=== PATIENT | male | born 1955 | race Caucasian/White ===

== ENCOUNTER 2016-10-12 10:22 | Emergency (ER) | payer MEDICARE, MEDICAID ==
[~2016-10-12] VITALS: Ht 177.8 cm; Wt 74.8 kg
[~2016-10-12 10:22] MED LIST: Augmentin Xr 101 TER PO; BACTRIM DS 8001 TA1 PO; BP MEDICATION; LOTRISONE30 ML T; NEURONTIN300 MG PO; Zestril,Prinivi40 MG PO
[2016-10-12] MEDS ORDERED: GABAPENTIN400 MG PO (10:41)
[2016-10-12] MEDS ORDERED: ENALAPRIL MALEA20 MG PO (10:42)
[2016-10-12 11:13] LABS: BASO % 0.4 % (0.0-1.0); EOS # 0.1 10*3/uL (0.0-0.4); EOS % 1.7 % (1.0-4.0); HEMATOCRIT 40.1 % (42.0-52.0); HEMOGLOBIN 13.4 g/dl (14.0-18.0); LYMPH # 1.8 10*3/uL (1.3-4.4); LYMPH % 23.1 % (27.0-41.0); MEAN CELL VOLUME 90.7 fl (80.0-94.0); MEAN CORPUSCULAR HGB 30.3 pg (27.0-31.0); MEAN CORPUSCULAR HGB CONC 33.4 g/dl (33.0-37.0); MEAN PLATELET VOLUME 10.1 fl (9.6-12.3); MONO # 0.5 10*3/uL (0.1-1.0); MONO % 5.8 % (3.0-9.0); NEUT # 5.3 10*3/uL (2.3-7.9); NEUT % 68.7 % (47.0-73.0); PLATELET COUNT AUTOMATED 196 10*3/uL (130-400); RED BLOOD COUNT 4.42 10*6/uL (4.50-5.90); WHITE BLOOD COUNT 7.7 10*3/uL (4.8-10.8)
[2016-10-12 11:29] LABS: ALBUMIN 3.5 gm/dl (3.1-4.5); ALKALINE PHOSPHATASE 85 U/L (45-117); BILIRUBIN, TOTAL 0.5 mg/dl (0.2-1.0); BUN 14 mg/dl (7-24); CARBON DIOXIDE 29 mmol/L (21-32); CHLORIDE 107 mmol/L (98-107); EST GLOM FILT AFRICAN AMERICAN > 60 ml/min; GLUCOSE 95 mg/dL (65-99); POTASSIUM 3.7 mmol/L (3.5-5.1); SGOT/AST 12 IU/L (3-35); SGPT/ALT 12 U/L (12-78); SODIUM 144 mmol/L (136-145); TOTAL PROTEIN 6.8 gm/dL (6.4-8.2)
[2016-10-12 12:29] LABS: BILIRUBIN NEGATIVE (NEGATIVE); BLOOD 2+ (NEGATIVE); CLARITY CLEAR (CLEAR); COLOR YELLOW (YELLOW); GLUCOSE NEGATIVE (NEGATIVE); KETONE 1+ (NEGATIVE); LEUKO ESTERASE TRACE (NEGATIVE); NITRITE NEGATIVE (NEGATIVE); PROTEIN NEGATIVE (NEGATIVE); SPECIFIC GRAVITY <= 1.005 (1.005-1.030)
[2016-10-12 12:36] LABS: EPITHELIAL CELLS 0-2
[2016-10-12 12:37] LABS: BACTERIA TRACE; URINE REFLEX COMMENT YES (NO)
== END 2016-10-12 13:49 | disposition home or self-care (01) ==
LOC: ED 10:22
PROVIDERS: Emergency Medicine
DX: R31.9 Hematuria, unspecified (principal); R10.30 Lower abdominal pain, unspecified; F12.10 Cannabis abuse, uncomplicated; Z79.899 Other long term (current) drug therapy; Z87.891 Personal history of nicotine dependence

== ENCOUNTER → 2017-08-29 | Outpatient (CLI) | payer MEDICARE ==
[~2017-08-29] MED LIST changes: +ENALAPRIL MALEA20 MG PO; +GABAPENTIN400 MG PO
[2017-08-29 08:57] LABS: HEMOGLOBIN 14.5 g/dl (14.0-18.0); MEAN CELL VOLUME 92.8 fl (80.0-94.0); MEAN CORPUSCULAR HGB 29.9 pg (27.0-31.0); MEAN CORPUSCULAR HGB CONC 32.2 g/dl (33.0-37.0); MEAN PLATELET VOLUME 10.8 fl (9.6-12.3); RED BLOOD COUNT 4.85 10*6/uL (4.50-5.90); RED CELL DISTRI WIDTH 13.3 % (0-14.5); WHITE BLOOD COUNT 6.3 10*3/uL (4.8-10.8)
[2017-08-29 09:33] LABS: ALBUMIN 3.7 gm/dl (3.1-4.5); ALKALINE PHOSPHATASE 91 U/L (45-117); BUN 16 mg/dl (7-24); CHLORIDE 106 mmol/L (98-107); CHOLESTEROL 212 mg/dL (<200); CREATININE 0.81 mg/dL (0.70-1.30); HDL CHOLESTEROL 50 mg/dl (40-60); LDL CHOLESTEROL 146 mg/dL (9-159); SGOT/AST 14 IU/L (3-35); SGPT/ALT 15 U/L (12-78); SODIUM 141 mmol/L (136-145); TOTAL PROTEIN 7.3 gm/dL (6.4-8.2); TRIGLYCERIDES 80 mg/dl (<150); VLDL CHOLESTEROL 16 mg/dL (6-40)
== END | disposition home or self-care (01) ==
LOC: LAB 08:38
PROVIDERS: Family Medicine
DX: Z12.5 Encounter for screening for malignant neoplasm of prostate (principal); E78.00 Pure hypercholesterolemia, unspecified; E55.9 Vitamin D deficiency, unspecified; I10 Essential (primary) hypertension; G62.9 Polyneuropathy, unspecified

== ENCOUNTER 2018-02-12 14:13 | Inpatient (IN) | payer MEDICARE ==
[2018-02-12] VITALS: BP 143/46
[~2018-02-12] VITALS: Ht 177.8 cm; Wt 74.8 kg
--- NOTE | ~2018-02-12 | WRIGHTHP ---
[place], [place] PATIENT HISTORY AND PHYSICAL EXAM NAME: GITA KINGSLEY [facility] #: [id number] UNIT #: [id number] ROOM: 404 DOCTOR: GALILEA GLOVER MD BIRTHDATE: [birth year] DOS: HISTORY OF PRESENT ILLNESS: The patient is a 62-year-old gentleman with a past medical history of: 1. Benign essential hypertension. 2. Fracture of T7, T8 and spinal cord injury at that level causing paraplegia in 2006. 3. Chronic pain syndrome. 4. History of pressure ulcers and osteomyelitis in the past. The patient presented to the Emergency Department with nausea and perirectal drainage, which was being treated by Dr. Goyo Taylor his doctor and his primary care physician, but the treatment failed. The patient was seen for this problem in the Emergency Department and recommended for admission and surgical consult. The patient has been seen by Dr. Hall, the surgeon. The patient is not complaining of any significant pain or drainage, any more. No chest pain, no shortness breath. No other GI or urinary symptoms. REVIEW OF SYSTEMS: RESPIRATORY: No increasing shortness of breath or wheezing. GASTROINTESTINAL: No nausea, vomiting, diarrhea, constipation, recent constipation is already resolved. CARDIOVASCULAR: No chest pains or palpitations. FAMILY HISTORY: Noncontributory. HOME MEDICATIONS: Gabapentin and Enalapril Maleate. ALLERGIES: KNOWN ALLERGIES TO VANCOMYCIN, GABAPENTIN, SULFA, LISINOPRIL. PHYSICAL EXAMINATION: GENERAL: Alert, oriented x 3, in no visible distress. HEENT AND NECK: Extraocular movements are intact. Sclerae are anicteric. Oral mucosa is moist and clean. No obvious facial weakness. Neck is supple without any lymphadenopathy. No thyromegaly. No JVD. No carotid arterial bruits. LUNGS: Clear to auscultation. No wheezing. No rhonchi. CARDIOVASCULAR SYSTEM: Heart rate is regular in rate and rhythm. S1 and S2 normally audible. No significant murmur or any other abnormal cardiac sounds. ABDOMEN: Soft, nontender. No obvious organomegaly. Bowel sounds are present. No obvious herniation. EXTREMITIES: Paraplegia and atrophy of the muscles of the lower extremity. CENTRAL NERVOUS SYSTEM: Alert and oriented x 3. Cranial nerves II-XII are intact. Speech is normal. The patient is able to move all extremities. Normal muscle strength. Deep tendon reflexes are equal on both sides. Plantars were downgoing. LABORATORY DATA: CT of the pelvis shows proctitis with circumferential thickening of the anal canal and there is a soft tissue tract, which extends from the anal orifice towards coccyx, which appears to be chronic. Normal serum electrolytes. Hemoglobin 13.4. [place], [place] PATIENT HISTORY AND PHYSICAL EXAM NAME: GITA KINGSLEY UNIT #: [id number] ROOM: 404 DOCTOR: GALILEA GLOVER MD BIRTHDATE: [birth year] IMPRESSION: The patient perirectal abscess and drainage recently failed treatment with antibiotic as an outpatient. The patient has been admitted and being treated with IV Flagyl and I will get an Infectious Disease consult. Dr. Hall feels that this abscess is chronic and has not suggested any more surgery. Advance disability and paraplegia I am taking bedsore precautions every 2 hour turning and air mattress will be used. Benign essential hypertension, treated monitored and controlled. The patient takes lisinopril. The patient with significant nausea, apparently related to infection, although he has no leukocytosis. The patient was started on ondansetron intravenously. GALILEA GLOVER MD CM:HISPHYS:PATIENT HISTORY AND PHYSICAL EXAMINATION [id number] GALILEA GLOVER MD 02/25/18 1330 interface
--- NOTE | ~2018-02-12 | DS ---
[place], [place] DISCHARGE SUMMARY [id number] UN[facility] #: [id number] ROOM: 404 DOCTOR: GALILEA GLOVER MD BIRTHDATE: [birth year] DOS: 02/14/2018 DISCHARGE DIAGNOSES: 1. Perianal abscess, stopped draining. The patient was seen by Infectious Disease specialist and surgeon, Dr. Hall. No leukocytosis. 2. Benign essential hypertension. 3. Fractures of T7, T8 and spinal cord injury with paraplegia since 2006. 4. Chronic pain syndrome. 5. History of pressure ulcers and osteomyelitis in the past. HOSPITAL COURSE: The patient was admitted through the Emergency Department. He presented with nausea and perirectal drainage and abscess, sent over by Dr. Goyo Taylor for failed outpatient antibiotic treatment. The patient was admitted and first treated with Flagyl and later on IV Zosyn. Case was discussed with Infectious Disease specialist today and the ID java consultant will order discharge antibiotics today. The patient is to be seen by Dr. Goyo Taylor within a week. No significant leukocytosis. The patient is doing well. No signs of sepsis. Blood cultures and urine cultures were negative. LABORATORY DATA: Hemoglobin of 13, normal platelets. CT of the pelvis showed an old perianal tract. DISCHARGE MANAGEMENT: Antibiotics as decided by ID, lisinopril 40 mg a day, gabapentin 400 mg 3 times a day, Tylenol p.r.n. GALILEA GLOVER MD CM:BEN [id number] GALILEA GLOVER MD 02/14/18 1047 interface
[2018-02-12 14:14] VITALS: BP 156/84
[2018-02-12 15:26] LABS: BASO % 0.5 % (0.0-1.0); EOS # 0.2 10*3/uL (0.0-0.4); EOS % 2.8 % (1.0-4.0); HEMOGLOBIN 13.4 g/dl (14.0-18.0); LYMPH # 1.8 10*3/uL (1.3-4.4); LYMPH % 32.2 % (27.0-41.0); MEAN CELL VOLUME 89.5 fl (80.0-94.0); MEAN CORPUSCULAR HGB CONC 33.5 g/dl (33.0-37.0); MONO # 0.5 10*3/uL (0.1-1.0); MONO % 8.2 % (3.0-9.0); NEUT # 3.2 10*3/uL (2.3-7.9); NEUT % 56.1 % (47.0-73.0); PLATELET COUNT AUTOMATED 216 10*3/uL (130-400); RED BLOOD COUNT 4.47 10*6/uL (4.50-5.90); WHITE BLOOD COUNT 5.6 10*3/uL (4.8-10.8)
[2018-02-12 15:40] LABS: ALBUMIN 3.3 gm/dl (3.1-4.5); ALKALINE PHOSPHATASE 86 U/L (45-117); BUN 11 mg/dl (7-24); CHLORIDE 109 mmol/L (98-107); CREATININE 0.78 mg/dL (0.70-1.30); POTASSIUM 3.5 mmol/L (3.5-5.1); SGOT/AST 17 IU/L (3-35); SGPT/ALT 24 U/L (12-78); SODIUM 145 mmol/L (136-145); TOTAL PROTEIN 7.1 gm/dL (6.4-8.2)
[2018-02-12 16:00] VITALS: BP 143/46
[2018-02-12 19:37] LABS: BILIRUBIN NEGATIVE (NEGATIVE); BLOOD 2+ (NEGATIVE); CLARITY CLEAR (CLEAR); COLOR YELLOW (YELLOW); GLUCOSE NEGATIVE (NEGATIVE); KETONE NEGATIVE (NEGATIVE); LEUKO ESTERASE NEGATIVE (NEGATIVE); NITRITE NEGATIVE (NEGATIVE); PH 7.5 (5.0-9.0); UROBILINOGEN 0.2 E.U./dl (0.2-1.0)
[2018-02-12 19:58] LABS: RBC 16-20 rbc/hpf (0-2)
[2018-02-12 19:59] LABS: BACTERIA TRACE
[2018-02-12 20:00] VITALS: BP 143/46
[2018-02-12 20:02] VITALS: BP 153/87
[2018-02-13] VITALS: BP 149/81
[2018-02-13 08:00] VITALS: BP 160/90
[2018-02-13 12:00] VITALS: BP 149/85
[2018-02-13 16:00] VITALS: BP 145/81
[2018-02-13 20:00] VITALS: BP 108/67; BP 157/81
[2018-02-14] VITALS: BP 141/83; BP 143/46
[2018-02-14 06:19] LABS: BASO % 0.6 % (0.0-1.0); EOS # 0.2 10*3/uL (0.0-0.4); EOS % 4.9 % (1.0-4.0); LYMPH # 1.6 10*3/uL (1.3-4.4); MEAN CORPUSCULAR HGB 29.7 pg (27.0-31.0); MEAN CORPUSCULAR HGB CONC 33.3 g/dl (33.0-37.0); MEAN PLATELET VOLUME 10.3 fl (9.6-12.3); MONO # 0.4 10*3/uL (0.1-1.0); MONO % 8.3 % (3.0-9.0); NEUT # 2.4 10*3/uL (2.3-7.9); PLATELET COUNT AUTOMATED 191 10*3/uL (130-400); RED BLOOD COUNT 4.38 10*6/uL (4.50-5.90); RED CELL DISTRI WIDTH 13.8 % (0-14.5); WHITE BLOOD COUNT 4.7 10*3/uL (4.8-10.8)
[2018-02-14 08:00] VITALS: BP 143/78; BP 160/90
[2018-02-14 12:00] VITALS: BP 147/84
== END 2018-02-14 13:59 | disposition home or self-care (01) | DRG 394 ==
LOC: ED 14:13 → EDHOLD 18:16 → 4E 18:16
PROVIDERS: Internal Medicine; Nurse Practitioner
DX: K61.2 Anorectal abscess (principal); G82.20 Paraplegia, unspecified; L02.91 Cutaneous abscess, unspecified; G89.4 Chronic pain syndrome; I10 Essential (primary) hypertension; R00.1 Bradycardia, unspecified; R31.9 Hematuria, unspecified; Z88.8 Allergy status to other drugs, medicaments and biological substances; Z88.1 Allergy status to other antibiotic agents; Z88.2 Allergy status to sulfonamides; Z87.891 Personal history of nicotine dependence; Z81.8 Family history of other mental and behavioral disorders; Z82.49 Family history of ischemic heart disease and other diseases of the circulatory system; Z87.440 Personal history of urinary (tract) infections; Z79.899 Other long term (current) drug therapy

== ENCOUNTER 2019-04-29 11:05 | Inpatient (IN) | payer OTHER, MEDICAID ==
[~2019-04-29] VITALS: Ht 177.8 cm; Wt 63.7 kg
[2019-04-29] VITALS (7 sets, daily range): BP systolic 123–186; BP diastolic 69–102
[2019-04-29 12:06] LABS: BASO % 0.3 % (0.0-1.0); EOS # 0.1 10*3/uL (0.0-0.4); EOS % 0.8 % (1.0-4.0); HEMATOCRIT 43.9 % (42.0-52.0); HEMOGLOBIN 14.6 g/dl (14.0-18.0); LYMPH # 1.3 10*3/uL (1.3-4.4); LYMPH % 11.1 % (27.0-41.0); MEAN CORPUSCULAR HGB 30.9 pg (27.0-31.0); MEAN CORPUSCULAR HGB CONC 33.3 g/dl (33.0-37.0); MEAN PLATELET VOLUME 10.8 fl (9.6-12.3); MONO # 0.7 10*3/uL (0.1-1.0); MONO % 6.5 % (3.0-9.0); NEUT # 9.2 10*3/uL (2.3-7.9); NEUT % 80.9 % (47.0-73.0); PLATELET COUNT AUTOMATED 202 10*3/uL (130-400); RED BLOOD COUNT 4.72 10*6/uL (4.50-5.90); RED CELL DISTRI WIDTH 13.3 % (0-14.5); WHITE BLOOD COUNT 11.4 10*3/uL (4.8-10.8)
[2019-04-29 12:17] LABS: ACT PARTIAL THROMBO TIME 28.2 SECONDS (20.0-32.1)
[2019-04-29 12:21] LABS: BUN 16 mg/dl (7-24); CHLORIDE 110 mmol/L (98-107); CREATININE 0.75 mg/dL (0.70-1.30); POTASSIUM 3.7 mmol/L (3.5-5.1); SODIUM 140 mmol/L (136-145)
[2019-04-29 12:31] LABS: TROPONIN I < 0.015 ng/ml (<0.045)
[2019-04-29 12:54] LABS: BILIRUBIN NEGATIVE (NEGATIVE); BLOOD 2+ (NEGATIVE); CLARITY CLEAR (CLEAR); COLOR YELLOW (YELLOW); GLUCOSE NEGATIVE (NEGATIVE); KETONE NEGATIVE (NEGATIVE); LEUKO ESTERASE NEGATIVE (NEGATIVE); NITRITE NEGATIVE (NEGATIVE); PH 6.5 (5.0-9.0); SPECIFIC GRAVITY 1.015 (1.005-1.030); UROBILINOGEN 0.2 E.U./dl (0.2-1.0)
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
[2019-04-29 13:10] LABS: RBC 16-20 rbc/hpf (0-2)
--- NOTE | 2019-04-29 13:40 | NUR ---
UNABLE TO REACH 4E NRS LEFT MESSAGE TO BE CALLED
--- NOTE | 2019-04-29 14:20 | NUR ---
A 64, admitted to , under the services of ASHLEE Snow MD with a diagnosis of Intermittent chest pain. Chief complaint is high blood pressure. Patient arrived via stretcher from ER. Monitor applied. Initial assessment completed. Vital signs taken and recorded. ASHLEE SNOW MD notified of admission to the unit. Orders received. See assessment for past medical history, medications and allergies. Patient and/or family oriented to unit. [address] visitation policy reviewed. Clothing/patient valuable form completed. BOOGIE DUMONT
--- NOTE | 2019-04-29 14:50 | NUR ---
Notified of patients arrival to unit and of updated home med list. Patients current status and medications were reviewed. See new orders.
--- NOTE | 2019-04-29 15:53 | NUR ---
Message left with Mona at [facility] regarding consult for chest pain and uncontrolled hypertension.
--- NOTE | 2019-04-29 17:30 | NUR ---
Notified Dr. Velazquez that patient had c/o nausea and an episode of vomitting. See new orders.
--- NOTE | 2019-04-29 18:04 | NUR ---
Discharge instructions reviewed with patient/family. Patient receptive and verbalizes understanding. Follow-up care arranged. Written instructions given to patient/family. Patient was educated on new prescriptions and follow up visits. She was also educated on weight restrictions and pain medications. BOOGIE DUMONT
--- NOTE | 2019-04-29 20:36 | NUR ---
PATIENT ADMINISTERED TYLENOL FOR COMPLAINTS OF HEADACHE PER DR ORDERS. RN WILL MONITOR
--- NOTE | 2019-04-29 21:45 | NUR ---
PATIENT STATES RELIEF FROM PAIN WITH EARLIER MEDICATION
--- NOTE | 2019-04-29 23:45 | NUR ---
STRAIGHT CATHS PROVIDED FOR PATIENT AT THIS TIME
[2019-04-30] VITALS: BP 122/67
[2019-04-30 05:52] LABS: CHOLESTEROL 200 mg/dL (<200); HDL CHOLESTEROL 51 mg/dl (40-60); LDL CHOLESTEROL 134 mg/dL (9-159); TRIGLYCERIDES 77 mg/dl (<150); VLDL CHOLESTEROL 15 mg/dL (6-40)
--- NOTE | 2019-04-30 09:00 | NUR ---
Late entry [place] Operator in to see patient. He is currently having an echo done at bedside. Will follow up at a later time.
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
[2019-04-30 12:00] VITALS: BP 153/80
--- NOTE | 2019-04-30 13:04 | NUR ---
Medicated with zofran iv per prn order for complaints of nausea.
[2019-04-30 16:00] VITALS: BP 142/72
[2019-04-30 20:36] VITALS: BP 119/71
[2019-05-01] VITALS: BP 126/68
--- NOTE | 2019-05-01 03:06 | NUR ---
TYLENOL GIVEN PER PRN ORDER FOR C/O RIGHT SHOULDER PAIN. SEE EMAR. REINFORCED USE OF CALL LIGHT
[2019-05-01 08:00] VITALS: BP 134/83
[2019-05-01] MEDS ORDERED: DOXYCYCLINE100 M3 PO (08:21)
[2019-05-01] MEDS ORDERED: AMLODIPINE BESYL5 MG PO (08:21)
[2019-05-01] MEDS ORDERED: ATORVASTATIN CA20 M1 PO (08:21)
[2019-05-01] MEDS ORDERED: HYDR25T PO (08:22)
--- NOTE | 2019-05-01 09:34 | NUR ---
PT REFUSED DC WOUND PHOTOS
--- NOTE | 2019-05-01 11:18 | NUR ---
Discharge instructions reviewed with patient/family. Patient receptive and verbalizes understanding. Follow-up care arranged. Written instructions given to patient/family. POLI CRUZ
== END 2019-05-01 11:18 | disposition home or self-care (01) | DRG 206 ==
LOC: ED 11:05 → 4E 12:39 → EDHOLD 12:39 → 4E 13:09
PROVIDERS: Emergency Medicine; Internal Medicine; ADMIT Internal Medicine
DX: M94.0 Chondrocostal junction syndrome [Tietze] (principal); L03.116 Cellulitis of left lower limb; I16.9 Hypertensive crisis, unspecified; G82.20 Paraplegia, unspecified; R07.2 Precordial pain; I10 Essential (primary) hypertension; R33.9 Retention of urine, unspecified; T24.102A Burn of first degree of unspecified site of left lower limb, except ankle and foot, initial encounter; E78.2 Mixed hyperlipidemia; E87.8 Other disorders of electrolyte and fluid balance, not elsewhere classified; R00.1 Bradycardia, unspecified; I16.0 Hypertensive urgency; I08.1 Rheumatic disorders of both mitral and tricuspid valves; R10.9 Unspecified abdominal pain; F12.90 Cannabis use, unspecified, uncomplicated; X16.XXXA Contact with hot heating appliances, radiators and pipes, initial encounter; Y93.89 Activity, other specified; Y92.098 Other place in other non-institutional residence as the place of occurrence of the external cause; Y99.8 Other external cause status; Z88.8 Allergy status to other drugs, medicaments and biological substances; Z88.2 Allergy status to sulfonamides; Z88.1 Allergy status to other antibiotic agents; Z87.440 Personal history of urinary (tract) infections; Z87.891 Personal history of nicotine dependence; Z82.49 Family history of ischemic heart disease and other diseases of the circulatory system; Z81.8 Family history of other mental and behavioral disorders; Z91.81 History of falling

== ENCOUNTER → 2019-07-10 | Outpatient (CLI) | payer OTHER, MEDICAID ==
[~2019-07-10] MED LIST changes: +AMLODIPINE BESYL5 MG PO; +ATORVASTATIN CA20 M1 PO; +DOXYCYCLINE100 M3 PO; +HYDR25T PO
[2019-07-10 12:36] LABS: HEMATOCRIT 39.2 % (42.0-52.0); HEMOGLOBIN 12.8 g/dl (14.0-18.0); MEAN CELL VOLUME 92.9 fl (80.0-94.0); MEAN CORPUSCULAR HGB 30.3 pg (27.0-31.0); MEAN CORPUSCULAR HGB CONC 32.7 g/dl (33.0-37.0); MEAN PLATELET VOLUME 10.4 fl (9.6-12.3); RED BLOOD COUNT 4.22 10*6/uL (4.50-5.90); RED CELL DISTRI WIDTH 13.6 % (0-14.5)
[2019-07-10 13:04] LABS: ALBUMIN 3.2 gm/dl (3.1-4.5); BUN 15 mg/dl (7-24); CHLORIDE 109 mmol/L (98-107); CREATININE 0.88 mg/dL (0.70-1.30); POTASSIUM 3.6 mmol/L (3.5-5.1); SGOT/AST 13 IU/L (3-35); SGPT/ALT 19 U/L (12-78); SODIUM 143 mmol/L (136-145)
[2019-07-10 13:15] LABS: ALKALINE PHOSPHATASE 88 U/L (45-117); TOTAL PROTEIN 6.9 gm/dL (6.4-8.2)
== END | disposition home or self-care (01) ==
LOC: LAB 11:10
PROVIDERS: Family Medicine
DX: T24.009A Burn of unspecified degree of unspecified site of unspecified lower limb, except ankle and foot, initial encounter (principal); I10 Essential (primary) hypertension; E78.00 Pure hypercholesterolemia, unspecified; X08.8XXA Exposure to other specified smoke, fire and flames, initial encounter; Y93.89 Activity, other specified; Y92.89 Other specified places as the place of occurrence of the external cause; Y99.8 Other external cause status

== ENCOUNTER → 2022-02-03 | Outpatient (CLI) | payer MEDICARE | END | disposition home or self-care (01) | LOC: WOUNDCARE 07:58 | PROVIDERS: ATTEND Nurse Practitioner Family | DX: L89.213 Pressure ulcer of right hip, stage 3 (principal); L89.153 Pressure ulcer of sacral region, stage 3; I95.89 Other hypotension; M86.8X7 Other osteomyelitis, ankle and foot; G82.20 Paraplegia, unspecified; G62.9 Polyneuropathy, unspecified; I10 Essential (primary) hypertension; Z99.3 Dependence on wheelchair; Z87.891 Personal history of nicotine dependence ==

== ENCOUNTER 2022-02-13 14:58 | Emergency (ER) | payer MEDICARE ==
[~2022-02-13] VITALS: Ht 177.8 cm; Wt 63.5 kg
[2022-02-13 17:08] LABS: BASO % 0.2 % (0.0-1.0); EOS % 0.4 % (1.0-4.0); HEMATOCRIT 26.3 % (42.0-52.0); LYMPH # 0.6 10*3/uL (1.3-4.4); LYMPH % 6.7 % (27.0-41.0); MEAN CELL VOLUME 79.9 fl (80.0-94.0); MEAN CORPUSCULAR HGB 24.9 pg (27.0-31.0); MEAN CORPUSCULAR HGB CONC 31.2 g/dl (33.0-37.0); MEAN PLATELET VOLUME 9.2 fl (9.6-12.3); MONO # 0.6 10*3/uL (0.1-1.0); MONO % 6.5 % (3.0-9.0); NEUT # 7.7 10*3/uL (2.3-7.9); NEUT % 85.8 % (47.0-73.0); PLATELET COUNT AUTOMATED 480 10*3/uL (130-400); RED BLOOD COUNT 3.29 10*6/uL (4.50-5.90); RED CELL DISTRI WIDTH 17.2 % (0-14.5)
[2022-02-13 17:34] LABS: ALKALINE PHOSPHATASE 83 U/L (45-117); BUN 15 mg/dl (7-24); CHLORIDE 103 mmol/L (98-107); CREATININE 0.86 mg/dL (0.70-1.30); POTASSIUM 4.2 mmol/L (3.5-5.1); SGOT/AST 38 IU/L (3-35); SGPT/ALT 43 U/L (12-78); SODIUM 138 mmol/L (136-145); TOTAL PROTEIN 6.3 gm/dL (6.4-8.2)
[2022-02-13] MEDS ORDERED: NEURONTIN300 MG PO (17:41)
[2022-02-13] MEDS ORDERED: VITAMIN C500 M8 PO (17:42)
[2022-02-13] MEDS ORDERED: VITAMIN B-12100 MCG PO (17:43)
[2022-02-13] MEDS ORDERED: MAG-OXIDE200 MG PO (17:44)
[2022-02-13] MEDS ORDERED: MINOCYCLINE HC100 MG PO (17:45)
[2022-02-13] MEDS ORDERED: MULTIGEN PLUS1 EACH PO (17:46)
[2022-02-13] MEDS ORDERED: TYLENOL325 M1 PO (17:47)
[2022-02-13] MEDS ORDERED: NATURE'S BLEND F1 MG PO (17:47)
== END 2022-02-13 19:07 | disposition home or self-care (01) ==
LOC: ED 14:58
PROVIDERS: Family Medicine
DX: L98.498 Non-pressure chronic ulcer of skin of other sites with other specified severity (principal); Z87.891 Personal history of nicotine dependence; Z79.899 Other long term (current) drug therapy; Z88.1 Allergy status to other antibiotic agents

== ENCOUNTER 2022-02-14 14:42 | Emergency (ER) | payer MEDICARE ==
[~2022-02-14] VITALS: Ht 177.8 cm; Wt 63.5 kg
== END 2022-02-14 15:07 | disposition left against medical advice (07) ==
LOC: ED 14:42
DX: L98.498 Non-pressure chronic ulcer of skin of other sites with other specified severity (principal); Z53.21 Procedure and treatment not carried out due to patient leaving prior to being seen by health care provider

== ENCOUNTER → 2022-02-14 | Outpatient (CLI) | payer MEDICARE ==
[~2022-02-14] MED LIST changes: +MAG-OXIDE200 MG PO; +MINOCYCLINE HC100 MG PO; +MULTIGEN PLUS1 EACH PO; +NATURE'S BLEND F1 MG PO; +TYLENOL325 M1 PO; +VITAMIN B-12100 MCG PO; +VITAMIN C500 M8 PO
== END | disposition home or self-care (01) ==
LOC: WOUNDCARE 08:38
PROVIDERS: ATTEND Nurse Practitioner Family
DX: L89.153 Pressure ulcer of sacral region, stage 3 (principal); L89.213 Pressure ulcer of right hip, stage 3; L89.313 Pressure ulcer of right buttock, stage 3; I95.89 Other hypotension; M86.8X7 Other osteomyelitis, ankle and foot; G82.20 Paraplegia, unspecified; I10 Essential (primary) hypertension; Z99.3 Dependence on wheelchair; Z87.891 Personal history of nicotine dependence

== ENCOUNTER → 2022-03-14 | Outpatient (CLI) | payer MEDICARE | END | disposition home or self-care (01) | LOC: WOUNDCARE 03:15 | PROVIDERS: ATTEND Nurse Practitioner Family | DX: L89.153 Pressure ulcer of sacral region, stage 3 (principal); L89.313 Pressure ulcer of right buttock, stage 3; L89.213 Pressure ulcer of right hip, stage 3; M86.8X7 Other osteomyelitis, ankle and foot; G82.20 Paraplegia, unspecified; I10 Essential (primary) hypertension; Z99.3 Dependence on wheelchair; Z87.891 Personal history of nicotine dependence; Z71.89 Other specified counseling ==

== ENCOUNTER → 2022-03-21 | Outpatient (CLI) | payer MEDICARE | END | disposition home or self-care (01) | LOC: WOUNDCARE 03:05 | PROVIDERS: ATTEND Nurse Practitioner Family | DX: L89.153 Pressure ulcer of sacral region, stage 3 (principal); L89.213 Pressure ulcer of right hip, stage 3; M86.60 Other chronic osteomyelitis, unspecified site; G82.20 Paraplegia, unspecified; G62.9 Polyneuropathy, unspecified; I10 Essential (primary) hypertension; Z99.3 Dependence on wheelchair; Z71.89 Other specified counseling; Z87.891 Personal history of nicotine dependence ==

== ENCOUNTER → 2022-03-22 | Outpatient (CLI) | payer MEDICARE | END | disposition home or self-care (01) | LOC: WOUNDCARE 09:11 | PROVIDERS: ATTEND Nurse Practitioner Family | DX: M86.68 Other chronic osteomyelitis, other site (principal); L89.213 Pressure ulcer of right hip, stage 3; L89.153 Pressure ulcer of sacral region, stage 3; G82.20 Paraplegia, unspecified; G62.9 Polyneuropathy, unspecified; I10 Essential (primary) hypertension; Z99.3 Dependence on wheelchair; Z71.89 Other specified counseling; Z87.891 Personal history of nicotine dependence ==

== ENCOUNTER → 2022-03-23 | Outpatient (CLI) | payer MEDICARE | END | disposition home or self-care (01) | LOC: WOUNDCARE 04:44 | PROVIDERS: ATTEND Nurse Practitioner Family | DX: M86.68 Other chronic osteomyelitis, other site (principal); L89.213 Pressure ulcer of right hip, stage 3; L89.153 Pressure ulcer of sacral region, stage 3; G82.20 Paraplegia, unspecified; G62.9 Polyneuropathy, unspecified; I10 Essential (primary) hypertension; Z99.3 Dependence on wheelchair; Z71.89 Other specified counseling; Z87.891 Personal history of nicotine dependence ==

== ENCOUNTER → 2022-03-24 | Outpatient (CLI) | payer MEDICARE | END | disposition home or self-care (01) | LOC: WOUNDCARE 01:00 | PROVIDERS: ATTEND Internal Medicine | DX: M86.68 Other chronic osteomyelitis, other site (principal); L89.213 Pressure ulcer of right hip, stage 3; L89.153 Pressure ulcer of sacral region, stage 3; G62.9 Polyneuropathy, unspecified; G82.20 Paraplegia, unspecified; I10 Essential (primary) hypertension; Z99.3 Dependence on wheelchair; Z87.891 Personal history of nicotine dependence; Z71.89 Other specified counseling ==

== ENCOUNTER → 2022-03-28 | Outpatient (CLI) | payer MEDICARE | END | disposition home or self-care (01) | LOC: WOUNDCARE 02:59 | PROVIDERS: ATTEND Nurse Practitioner Family | DX: M86.68 Other chronic osteomyelitis, other site (principal); L89.153 Pressure ulcer of sacral region, stage 3; L89.213 Pressure ulcer of right hip, stage 3; G82.20 Paraplegia, unspecified; I10 Essential (primary) hypertension; Z71.89 Other specified counseling; Z99.3 Dependence on wheelchair; Z87.891 Personal history of nicotine dependence ==

== ENCOUNTER → 2022-03-29 | Outpatient (CLI) | payer MEDICARE | END | disposition home or self-care (01) | LOC: WOUNDCARE 03:20 | PROVIDERS: ATTEND Nurse Practitioner Family | DX: M86.68 Other chronic osteomyelitis, other site (principal); L89.213 Pressure ulcer of right hip, stage 3; L89.153 Pressure ulcer of sacral region, stage 3; G82.20 Paraplegia, unspecified; G62.9 Polyneuropathy, unspecified; I10 Essential (primary) hypertension; Z99.3 Dependence on wheelchair; Z71.89 Other specified counseling; Z87.891 Personal history of nicotine dependence ==

== ENCOUNTER → 2022-03-30 | Outpatient (CLI) | payer MEDICARE | END | disposition home or self-care (01) | LOC: WOUNDCARE 01:25 | PROVIDERS: ATTEND Nurse Practitioner Family | DX: M86.68 Other chronic osteomyelitis, other site (principal); L89.153 Pressure ulcer of sacral region, stage 3; L89.213 Pressure ulcer of right hip, stage 3; G82.20 Paraplegia, unspecified; G62.9 Polyneuropathy, unspecified; I10 Essential (primary) hypertension; Z99.3 Dependence on wheelchair; Z71.89 Other specified counseling; Z87.891 Personal history of nicotine dependence ==

== ENCOUNTER → 2022-04-04 | Outpatient (CLI) | payer MEDICARE | END | disposition home or self-care (01) | LOC: WOUNDCARE 04:21 | PROVIDERS: ATTEND Student in an Organized Health Care Education/Training Program | DX: M86.68 Other chronic osteomyelitis, other site (principal); L89.213 Pressure ulcer of right hip, stage 3; L89.153 Pressure ulcer of sacral region, stage 3; G82.20 Paraplegia, unspecified; G62.9 Polyneuropathy, unspecified; I10 Essential (primary) hypertension; Z99.3 Dependence on wheelchair; Z71.89 Other specified counseling; Z87.891 Personal history of nicotine dependence ==

== ENCOUNTER → 2022-04-11 | Outpatient (CLI) | payer MEDICARE | END | disposition home or self-care (01) | LOC: WOUNDCARE 01:46 | PROVIDERS: ATTEND Nurse Practitioner Family | DX: M86.68 Other chronic osteomyelitis, other site (principal); L89.153 Pressure ulcer of sacral region, stage 3; L89.213 Pressure ulcer of right hip, stage 3; T24.302A Burn of third degree of unspecified site of left lower limb, except ankle and foot, initial encounter; T31.0 Burns involving less than 10% of body surface; L97.822 Non-pressure chronic ulcer of other part of left lower leg with fat layer exposed; M86.60 Other chronic osteomyelitis, unspecified site; G62.9 Polyneuropathy, unspecified; G82.20 Paraplegia, unspecified; I10 Essential (primary) hypertension; Z71.89 Other specified counseling; Z87.891 Personal history of nicotine dependence; Z99.3 Dependence on wheelchair; X08.8XXA Exposure to other specified smoke, fire and flames, initial encounter; Y93.89 Activity, other specified; Y92.89 Other specified places as the place of occurrence of the external cause; Y99.8 Other external cause status ==

== ENCOUNTER → 2022-04-12 | Outpatient (CLI) | payer MEDICARE | END | disposition home or self-care (01) | LOC: WOUNDCARE 04:42 | PROVIDERS: ATTEND Nurse Practitioner Family | DX: M86.68 Other chronic osteomyelitis, other site (principal); L89.213 Pressure ulcer of right hip, stage 3; L89.153 Pressure ulcer of sacral region, stage 3; L97.822 Non-pressure chronic ulcer of other part of left lower leg with fat layer exposed; G62.9 Polyneuropathy, unspecified; I10 Essential (primary) hypertension; G82.20 Paraplegia, unspecified; Z71.89 Other specified counseling; Z99.3 Dependence on wheelchair; Z87.891 Personal history of nicotine dependence ==

== ENCOUNTER → 2022-04-14 | Outpatient (CLI) | payer MEDICARE | LOC: WOUNDCARE 02:25 | PROVIDERS: ATTEND Nurse Practitioner Family | DX: M86.68 Other chronic osteomyelitis, other site (principal); L89.213 Pressure ulcer of right hip, stage 3; L89.153 Pressure ulcer of sacral region, stage 3; L97.822 Non-pressure chronic ulcer of other part of left lower leg with fat layer exposed; G82.20 Paraplegia, unspecified; G62.9 Polyneuropathy, unspecified; I10 Essential (primary) hypertension; Z99.3 Dependence on wheelchair; Z71.89 Other specified counseling; Z87.891 Personal history of nicotine dependence ==

== ENCOUNTER → 2022-04-17 | Outpatient (CLI) | payer MEDICARE | END | disposition home or self-care (01) | LOC: WOUNDCARE 00:54 | PROVIDERS: ATTEND Internal Medicine | DX: M86.68 Other chronic osteomyelitis, other site (principal); L89.213 Pressure ulcer of right hip, stage 3; L89.153 Pressure ulcer of sacral region, stage 3; L97.822 Non-pressure chronic ulcer of other part of left lower leg with fat layer exposed; G82.20 Paraplegia, unspecified; G62.9 Polyneuropathy, unspecified; I10 Essential (primary) hypertension; Z99.3 Dependence on wheelchair; Z71.89 Other specified counseling; Z87.891 Personal history of nicotine dependence ==

== ENCOUNTER → 2022-04-18 | Outpatient (CLI) | payer MEDICARE | END | disposition home or self-care (01) | LOC: WOUNDCARE 03:08 | PROVIDERS: ATTEND Nurse Practitioner Family | DX: M86.68 Other chronic osteomyelitis, other site (principal); L89.153 Pressure ulcer of sacral region, stage 3; L89.213 Pressure ulcer of right hip, stage 3; L97.822 Non-pressure chronic ulcer of other part of left lower leg with fat layer exposed; T24.302D Burn of third degree of unspecified site of left lower limb, except ankle and foot, subsequent encounter; T31.0 Burns involving less than 10% of body surface; G82.20 Paraplegia, unspecified; G62.9 Polyneuropathy, unspecified; I10 Essential (primary) hypertension; Z99.3 Dependence on wheelchair; Z71.89 Other specified counseling; Z87.891 Personal history of nicotine dependence; X08.8XXD Exposure to other specified smoke, fire and flames, subsequent encounter ==

== ENCOUNTER → 2022-04-19 | Outpatient (CLI) | payer MEDICARE | END | disposition home or self-care (01) | LOC: WOUNDCARE 03:04 | PROVIDERS: ATTEND Nurse Practitioner Family | DX: M86.68 Other chronic osteomyelitis, other site (principal); L89.213 Pressure ulcer of right hip, stage 3; L89.153 Pressure ulcer of sacral region, stage 3; L97.822 Non-pressure chronic ulcer of other part of left lower leg with fat layer exposed; G82.20 Paraplegia, unspecified; G62.9 Polyneuropathy, unspecified; I10 Essential (primary) hypertension; Z99.3 Dependence on wheelchair; Z71.89 Other specified counseling; Z87.891 Personal history of nicotine dependence ==

== ENCOUNTER → 2022-04-20 | Outpatient (CLI) | payer MEDICARE | END | disposition home or self-care (01) | LOC: WOUNDCARE 01:15 | PROVIDERS: ATTEND Nurse Practitioner Family | DX: M86.68 Other chronic osteomyelitis, other site (principal); L89.213 Pressure ulcer of right hip, stage 3; L89.153 Pressure ulcer of sacral region, stage 3; L97.822 Non-pressure chronic ulcer of other part of left lower leg with fat layer exposed; G62.9 Polyneuropathy, unspecified; G82.20 Paraplegia, unspecified; I10 Essential (primary) hypertension; Z99.3 Dependence on wheelchair; Z71.89 Other specified counseling; Z87.891 Personal history of nicotine dependence ==

== ENCOUNTER → 2022-04-24 | Outpatient (CLI) | payer MEDICARE | END | disposition home or self-care (01) | LOC: WOUNDCARE 01:38 | PROVIDERS: ATTEND Student in an Organized Health Care Education/Training Program | DX: M86.68 Other chronic osteomyelitis, other site (principal); L89.213 Pressure ulcer of right hip, stage 3; L89.153 Pressure ulcer of sacral region, stage 3; L97.822 Non-pressure chronic ulcer of other part of left lower leg with fat layer exposed; G82.20 Paraplegia, unspecified; G62.9 Polyneuropathy, unspecified; I10 Essential (primary) hypertension; Z99.3 Dependence on wheelchair; Z71.89 Other specified counseling; Z87.891 Personal history of nicotine dependence ==

== ENCOUNTER → 2022-04-26 | Outpatient (CLI) | payer MEDICARE | END | disposition home or self-care (01) | LOC: WOUNDCARE 01:06 | PROVIDERS: ATTEND Nurse Practitioner Family | DX: M86.68 Other chronic osteomyelitis, other site (principal); L89.213 Pressure ulcer of right hip, stage 3; L89.153 Pressure ulcer of sacral region, stage 3; L97.822 Non-pressure chronic ulcer of other part of left lower leg with fat layer exposed; G82.20 Paraplegia, unspecified; G62.9 Polyneuropathy, unspecified; I10 Essential (primary) hypertension; Z99.3 Dependence on wheelchair; Z71.89 Other specified counseling; Z87.891 Personal history of nicotine dependence ==

== ENCOUNTER → 2022-04-27 | Outpatient (CLI) | payer MEDICARE | END | disposition home or self-care (01) | LOC: WOUNDCARE 02:41 | PROVIDERS: ATTEND Internal Medicine | DX: M86.68 Other chronic osteomyelitis, other site (principal); L89.213 Pressure ulcer of right hip, stage 3; L89.153 Pressure ulcer of sacral region, stage 3; L97.822 Non-pressure chronic ulcer of other part of left lower leg with fat layer exposed; G82.20 Paraplegia, unspecified; G62.9 Polyneuropathy, unspecified; I10 Essential (primary) hypertension; Z99.3 Dependence on wheelchair; Z71.89 Other specified counseling; Z87.891 Personal history of nicotine dependence ==

== ENCOUNTER → 2022-04-28 | Outpatient (CLI) | payer MEDICARE | END | disposition home or self-care (01) | LOC: WOUNDCARE 02:44 | PROVIDERS: ATTEND Nurse Practitioner Family | DX: M86.68 Other chronic osteomyelitis, other site (principal); L89.213 Pressure ulcer of right hip, stage 3; L89.513 Pressure ulcer of right ankle, stage 3; L97.822 Non-pressure chronic ulcer of other part of left lower leg with fat layer exposed; G82.20 Paraplegia, unspecified; G62.9 Polyneuropathy, unspecified; I10 Essential (primary) hypertension; Z99.3 Dependence on wheelchair; Z71.89 Other specified counseling; Z87.891 Personal history of nicotine dependence ==

== ENCOUNTER → 2022-05-01 | Outpatient (CLI) | payer MEDICARE | END | disposition home or self-care (01) | LOC: WOUNDCARE 01:31 | PROVIDERS: ATTEND Student in an Organized Health Care Education/Training Program | DX: M86.68 Other chronic osteomyelitis, other site (principal); L89.213 Pressure ulcer of right hip, stage 3; L89.153 Pressure ulcer of sacral region, stage 3; L97.822 Non-pressure chronic ulcer of other part of left lower leg with fat layer exposed; G82.20 Paraplegia, unspecified; G62.9 Polyneuropathy, unspecified; I10 Essential (primary) hypertension; Z99.3 Dependence on wheelchair; Z71.89 Other specified counseling; Z87.891 Personal history of nicotine dependence ==

== ENCOUNTER → 2022-05-02 | Outpatient (CLI) | payer MEDICARE | END | disposition home or self-care (01) | LOC: WOUNDCARE 01:00 | PROVIDERS: ATTEND Internal Medicine | DX: M86.68 Other chronic osteomyelitis, other site (principal); L89.213 Pressure ulcer of right hip, stage 3; L89.153 Pressure ulcer of sacral region, stage 3; L97.822 Non-pressure chronic ulcer of other part of left lower leg with fat layer exposed; G82.20 Paraplegia, unspecified; G62.9 Polyneuropathy, unspecified; I10 Essential (primary) hypertension; Z99.3 Dependence on wheelchair; Z71.89 Other specified counseling; Z87.891 Personal history of nicotine dependence ==

== ENCOUNTER → 2022-05-05 | Outpatient (CLI) | payer MEDICARE | END | disposition home or self-care (01) | LOC: WOUNDCARE 01:19 | PROVIDERS: ATTEND Nurse Practitioner Family | DX: M86.68 Other chronic osteomyelitis, other site (principal); L89.213 Pressure ulcer of right hip, stage 3; L89.153 Pressure ulcer of sacral region, stage 3; L97.822 Non-pressure chronic ulcer of other part of left lower leg with fat layer exposed; G82.20 Paraplegia, unspecified; G62.9 Polyneuropathy, unspecified; I10 Essential (primary) hypertension; Z99.3 Dependence on wheelchair; Z71.89 Other specified counseling; Z87.891 Personal history of nicotine dependence ==

== ENCOUNTER → 2022-05-10 | Outpatient (CLI) | payer MEDICARE | END | disposition home or self-care (01) | LOC: WOUNDCARE 02:45 | PROVIDERS: ATTEND Nurse Practitioner Family | DX: M86.68 Other chronic osteomyelitis, other site (principal); L97.822 Non-pressure chronic ulcer of other part of left lower leg with fat layer exposed; L89.213 Pressure ulcer of right hip, stage 3; L89.153 Pressure ulcer of sacral region, stage 3; G82.20 Paraplegia, unspecified; G62.9 Polyneuropathy, unspecified; I10 Essential (primary) hypertension; Z99.3 Dependence on wheelchair; Z71.89 Other specified counseling; Z87.891 Personal history of nicotine dependence ==

== ENCOUNTER → 2022-05-11 | Outpatient (CLI) | payer MEDICARE | LOC: WOUNDCARE 01:58 | PROVIDERS: ATTEND Nurse Practitioner Family | DX: Z53.21 Procedure and treatment not carried out due to patient leaving prior to being seen by health care provider (principal) ==

== ENCOUNTER → 2022-05-15 | Outpatient (CLI) | payer MEDICARE | END | disposition home or self-care (01) | LOC: WOUNDCARE 00:25 | PROVIDERS: ATTEND Internal Medicine | DX: M86.68 Other chronic osteomyelitis, other site (principal); L89.213 Pressure ulcer of right hip, stage 3; L89.153 Pressure ulcer of sacral region, stage 3; L97.822 Non-pressure chronic ulcer of other part of left lower leg with fat layer exposed; G82.20 Paraplegia, unspecified; G62.9 Polyneuropathy, unspecified; I10 Essential (primary) hypertension; Z99.3 Dependence on wheelchair; Z71.89 Other specified counseling; Z87.891 Personal history of nicotine dependence ==

== ENCOUNTER → 2022-05-16 | Outpatient (CLI) | payer MEDICARE | END | disposition home or self-care (01) | LOC: WOUNDCARE 02:37 | PROVIDERS: ATTEND Internal Medicine | DX: L89.153 Pressure ulcer of sacral region, stage 3 (principal); L89.213 Pressure ulcer of right hip, stage 3; L97.822 Non-pressure chronic ulcer of other part of left lower leg with fat layer exposed; M86.60 Other chronic osteomyelitis, unspecified site; G82.20 Paraplegia, unspecified; G62.9 Polyneuropathy, unspecified; I10 Essential (primary) hypertension; Z99.3 Dependence on wheelchair; Z71.89 Other specified counseling; Z87.891 Personal history of nicotine dependence ==

== ENCOUNTER → 2022-05-17 | Outpatient (CLI) | payer MEDICARE | END | disposition home or self-care (01) | LOC: WOUNDCARE 03:24 | PROVIDERS: ATTEND Nurse Practitioner Family | DX: M86.68 Other chronic osteomyelitis, other site (principal); L89.213 Pressure ulcer of right hip, stage 3; L89.153 Pressure ulcer of sacral region, stage 3; L97.822 Non-pressure chronic ulcer of other part of left lower leg with fat layer exposed; G82.20 Paraplegia, unspecified; G62.9 Polyneuropathy, unspecified; I10 Essential (primary) hypertension; Z99.3 Dependence on wheelchair; Z71.89 Other specified counseling; Z87.891 Personal history of nicotine dependence ==

== ENCOUNTER → 2022-05-18 | Outpatient (CLI) | payer MEDICARE | END | disposition home or self-care (01) | LOC: WOUNDCARE 01:09 | PROVIDERS: ATTEND Internal Medicine | DX: M86.68 Other chronic osteomyelitis, other site (principal); L89.213 Pressure ulcer of right hip, stage 3; L89.153 Pressure ulcer of sacral region, stage 3; L97.822 Non-pressure chronic ulcer of other part of left lower leg with fat layer exposed; G82.20 Paraplegia, unspecified; G62.9 Polyneuropathy, unspecified; I10 Essential (primary) hypertension; Z99.3 Dependence on wheelchair; Z71.89 Other specified counseling; Z87.891 Personal history of nicotine dependence ==

== ENCOUNTER → 2022-05-19 | Outpatient (CLI) | payer MEDICARE | END | disposition home or self-care (01) | LOC: WOUNDCARE 00:27 | PROVIDERS: ATTEND Nurse Practitioner Family | DX: M86.68 Other chronic osteomyelitis, other site (principal); L89.213 Pressure ulcer of right hip, stage 3; L89.153 Pressure ulcer of sacral region, stage 3; L97.822 Non-pressure chronic ulcer of other part of left lower leg with fat layer exposed; G82.20 Paraplegia, unspecified; G62.9 Polyneuropathy, unspecified; I10 Essential (primary) hypertension; Z99.3 Dependence on wheelchair; Z71.89 Other specified counseling; Z87.891 Personal history of nicotine dependence ==

== ENCOUNTER → 2022-05-24 | Outpatient (CLI) | payer MEDICARE | END | disposition home or self-care (01) | LOC: WOUNDCARE 01:34 | PROVIDERS: ATTEND Nurse Practitioner Family | DX: M86.68 Other chronic osteomyelitis, other site (principal); L89.213 Pressure ulcer of right hip, stage 3; L89.153 Pressure ulcer of sacral region, stage 3; L97.822 Non-pressure chronic ulcer of other part of left lower leg with fat layer exposed; G82.20 Paraplegia, unspecified; G62.9 Polyneuropathy, unspecified; I10 Essential (primary) hypertension; Z99.3 Dependence on wheelchair; Z71.89 Other specified counseling; Z87.891 Personal history of nicotine dependence ==

== ENCOUNTER → 2022-05-25 | Outpatient (CLI) | payer MEDICARE | END | disposition home or self-care (01) | LOC: WOUNDCARE 00:51 | PROVIDERS: ATTEND Nurse Practitioner Family | DX: M86.68 Other chronic osteomyelitis, other site (principal); L89.213 Pressure ulcer of right hip, stage 3; L89.153 Pressure ulcer of sacral region, stage 3; L97.822 Non-pressure chronic ulcer of other part of left lower leg with fat layer exposed; G82.20 Paraplegia, unspecified; G62.9 Polyneuropathy, unspecified; I10 Essential (primary) hypertension; Z71.89 Other specified counseling; Z99.3 Dependence on wheelchair; Z87.891 Personal history of nicotine dependence ==

== ENCOUNTER → 2022-05-26 | Outpatient (CLI) | payer MEDICARE | END | disposition home or self-care (01) | LOC: WOUNDCARE 00:11 | PROVIDERS: ATTEND Internal Medicine | DX: M86.68 Other chronic osteomyelitis, other site (principal); L89.213 Pressure ulcer of right hip, stage 3; L89.153 Pressure ulcer of sacral region, stage 3; L97.822 Non-pressure chronic ulcer of other part of left lower leg with fat layer exposed; G82.20 Paraplegia, unspecified; G62.9 Polyneuropathy, unspecified; I10 Essential (primary) hypertension; Z71.89 Other specified counseling; Z99.3 Dependence on wheelchair; Z87.891 Personal history of nicotine dependence ==

== ENCOUNTER → 2022-05-30 | Outpatient (CLI) | payer MEDICARE | LOC: WOUNDCARE 03:55 | PROVIDERS: ATTEND Student in an Organized Health Care Education/Training Program | DX: M86.68 Other chronic osteomyelitis, other site (principal); L89.213 Pressure ulcer of right hip, stage 3; L89.153 Pressure ulcer of sacral region, stage 3; L97.822 Non-pressure chronic ulcer of other part of left lower leg with fat layer exposed; I10 Essential (primary) hypertension; G62.9 Polyneuropathy, unspecified; G82.20 Paraplegia, unspecified; Z99.3 Dependence on wheelchair; Z71.89 Other specified counseling; Z87.891 Personal history of nicotine dependence ==

== ENCOUNTER → 2022-05-31 | Outpatient (CLI) | payer MEDICARE | END | disposition home or self-care (01) | LOC: WOUNDCARE 03-27 04:03 | PROVIDERS: ATTEND Nurse Practitioner Family | DX: M86.68 Other chronic osteomyelitis, other site (principal); L89.213 Pressure ulcer of right hip, stage 3; L89.153 Pressure ulcer of sacral region, stage 3; L97.822 Non-pressure chronic ulcer of other part of left lower leg with fat layer exposed; I10 Essential (primary) hypertension; G62.9 Polyneuropathy, unspecified; G82.20 Paraplegia, unspecified; Z99.3 Dependence on wheelchair; Z71.89 Other specified counseling; Z87.891 Personal history of nicotine dependence ==

== ENCOUNTER → 2022-06-01 | Outpatient (CLI) | payer MEDICARE | END | disposition home or self-care (01) | LOC: WOUNDCARE 00:34 | PROVIDERS: ATTEND Nurse Practitioner Family | DX: M86.68 Other chronic osteomyelitis, other site (principal); L89.213 Pressure ulcer of right hip, stage 3; L89.153 Pressure ulcer of sacral region, stage 3; L97.822 Non-pressure chronic ulcer of other part of left lower leg with fat layer exposed; G82.20 Paraplegia, unspecified; G62.9 Polyneuropathy, unspecified; I10 Essential (primary) hypertension; Z99.3 Dependence on wheelchair; Z71.89 Other specified counseling; Z87.891 Personal history of nicotine dependence ==

== ENCOUNTER → 2022-06-02 | Outpatient (CLI) | payer MEDICARE | END | disposition home or self-care (01) | LOC: WOUNDCARE 04-06 00:38 | PROVIDERS: ATTEND Nurse Practitioner Family | DX: M86.68 Other chronic osteomyelitis, other site (principal); L97.822 Non-pressure chronic ulcer of other part of left lower leg with fat layer exposed; L89.213 Pressure ulcer of right hip, stage 3; L89.153 Pressure ulcer of sacral region, stage 3; G82.20 Paraplegia, unspecified; G62.9 Polyneuropathy, unspecified; I10 Essential (primary) hypertension; Z99.3 Dependence on wheelchair; Z71.89 Other specified counseling; Z87.891 Personal history of nicotine dependence ==

== ENCOUNTER → 2022-06-06 | Outpatient (CLI) | payer MEDICARE | END | disposition home or self-care (01) | LOC: WOUNDCARE 05:12 | PROVIDERS: ATTEND Student in an Organized Health Care Education/Training Program | DX: M86.68 Other chronic osteomyelitis, other site (principal); L97.822 Non-pressure chronic ulcer of other part of left lower leg with fat layer exposed; L89.213 Pressure ulcer of right hip, stage 3; L89.153 Pressure ulcer of sacral region, stage 3; G82.20 Paraplegia, unspecified; G62.9 Polyneuropathy, unspecified; I10 Essential (primary) hypertension; Z99.3 Dependence on wheelchair; Z71.89 Other specified counseling; Z87.891 Personal history of nicotine dependence ==

== ENCOUNTER → 2022-06-07 | Outpatient (CLI) | payer MEDICARE | END | disposition home or self-care (01) | LOC: WOUNDCARE 04-05 03:52 | PROVIDERS: ATTEND Nurse Practitioner Family | DX: M86.68 Other chronic osteomyelitis, other site (principal); L97.822 Non-pressure chronic ulcer of other part of left lower leg with fat layer exposed; L89.213 Pressure ulcer of right hip, stage 3; L89.153 Pressure ulcer of sacral region, stage 3; G82.20 Paraplegia, unspecified; G62.9 Polyneuropathy, unspecified; I10 Essential (primary) hypertension; Z99.3 Dependence on wheelchair; Z71.89 Other specified counseling; Z87.891 Personal history of nicotine dependence ==

== ENCOUNTER → 2022-06-08 | Outpatient (CLI) | payer MEDICARE | END | disposition home or self-care (01) | LOC: WOUNDCARE 00:50 | PROVIDERS: ATTEND Internal Medicine | DX: M86.68 Other chronic osteomyelitis, other site (principal); L97.822 Non-pressure chronic ulcer of other part of left lower leg with fat layer exposed; L89.214 Pressure ulcer of right hip, stage 4; L89.154 Pressure ulcer of sacral region, stage 4; G82.20 Paraplegia, unspecified; G62.9 Polyneuropathy, unspecified; I10 Essential (primary) hypertension; Z99.3 Dependence on wheelchair; Z71.89 Other specified counseling; Z87.891 Personal history of nicotine dependence ==

== ENCOUNTER → 2022-06-09 | Outpatient (CLI) | payer MEDICARE | END | disposition home or self-care (01) | LOC: WOUNDCARE 01:21 | PROVIDERS: ATTEND Nurse Practitioner Family | DX: M86.68 Other chronic osteomyelitis, other site (principal); L97.822 Non-pressure chronic ulcer of other part of left lower leg with fat layer exposed; L89.214 Pressure ulcer of right hip, stage 4; L89.154 Pressure ulcer of sacral region, stage 4; G82.20 Paraplegia, unspecified; G62.9 Polyneuropathy, unspecified; I10 Essential (primary) hypertension; Z99.3 Dependence on wheelchair; Z71.89 Other specified counseling; Z87.891 Personal history of nicotine dependence ==

== ENCOUNTER → 2022-06-19 | Outpatient (CLI) | payer MEDICARE | END | disposition home or self-care (01) | LOC: WOUNDCARE 01:56 | PROVIDERS: ATTEND Internal Medicine | DX: M86.68 Other chronic osteomyelitis, other site (principal); L97.822 Non-pressure chronic ulcer of other part of left lower leg with fat layer exposed; L89.214 Pressure ulcer of right hip, stage 4; L89.154 Pressure ulcer of sacral region, stage 4; G82.20 Paraplegia, unspecified; G62.9 Polyneuropathy, unspecified; I10 Essential (primary) hypertension; Z99.3 Dependence on wheelchair; Z71.89 Other specified counseling; Z87.891 Personal history of nicotine dependence ==

== ENCOUNTER → 2022-06-20 | Outpatient (CLI) | payer MEDICARE | END | disposition home or self-care (01) | LOC: WOUNDCARE 00:44 | PROVIDERS: ATTEND Internal Medicine | DX: M86.68 Other chronic osteomyelitis, other site (principal); L89.154 Pressure ulcer of sacral region, stage 4; L89.214 Pressure ulcer of right hip, stage 4; L97.822 Non-pressure chronic ulcer of other part of left lower leg with fat layer exposed; G82.20 Paraplegia, unspecified; G62.9 Polyneuropathy, unspecified; I10 Essential (primary) hypertension; Z71.89 Other specified counseling; Z99.3 Dependence on wheelchair; Z87.891 Personal history of nicotine dependence ==

== ENCOUNTER → 2022-06-22 | Outpatient (CLI) | payer MEDICARE | LOC: WOUNDCARE 01:18 | PROVIDERS: ATTEND Internal Medicine | DX: M86.68 Other chronic osteomyelitis, other site (principal); L89.214 Pressure ulcer of right hip, stage 4; L89.154 Pressure ulcer of sacral region, stage 4; L97.822 Non-pressure chronic ulcer of other part of left lower leg with fat layer exposed; G82.20 Paraplegia, unspecified; G62.9 Polyneuropathy, unspecified; I10 Essential (primary) hypertension; Z99.3 Dependence on wheelchair; Z71.89 Other specified counseling; Z87.891 Personal history of nicotine dependence ==

== ENCOUNTER → 2022-06-22 | Outpatient (CLI) | payer MEDICARE | END | disposition home or self-care (01) | LOC: WOUNDCARE 01:20 | PROVIDERS: ATTEND Nurse Practitioner Family | DX: M86.68 Other chronic osteomyelitis, other site (principal); L89.214 Pressure ulcer of right hip, stage 4; L89.154 Pressure ulcer of sacral region, stage 4; L97.822 Non-pressure chronic ulcer of other part of left lower leg with fat layer exposed; G82.20 Paraplegia, unspecified; G62.9 Polyneuropathy, unspecified; I10 Essential (primary) hypertension; Z99.3 Dependence on wheelchair; Z71.89 Other specified counseling; Z87.891 Personal history of nicotine dependence ==

== ENCOUNTER → 2022-06-23 | Outpatient (CLI) | payer MEDICARE | END | disposition home or self-care (01) | LOC: WOUNDCARE 00:31 | PROVIDERS: ATTEND Internal Medicine | DX: M86.68 Other chronic osteomyelitis, other site (principal); L89.214 Pressure ulcer of right hip, stage 4; L89.154 Pressure ulcer of sacral region, stage 4; L97.822 Non-pressure chronic ulcer of other part of left lower leg with fat layer exposed; G82.20 Paraplegia, unspecified; G62.9 Polyneuropathy, unspecified; I10 Essential (primary) hypertension; Z99.3 Dependence on wheelchair; Z71.89 Other specified counseling; Z87.891 Personal history of nicotine dependence ==

== ENCOUNTER → 2022-06-28 | Outpatient (CLI) | payer MEDICARE | END | disposition home or self-care (01) | LOC: WOUNDCARE 00:01 | PROVIDERS: ATTEND Nurse Practitioner Family | DX: M86.68 Other chronic osteomyelitis, other site (principal); L89.214 Pressure ulcer of right hip, stage 4; L89.154 Pressure ulcer of sacral region, stage 4; L97.822 Non-pressure chronic ulcer of other part of left lower leg with fat layer exposed; G82.20 Paraplegia, unspecified; G62.9 Polyneuropathy, unspecified; I10 Essential (primary) hypertension; Z99.3 Dependence on wheelchair; Z71.89 Other specified counseling; Z87.891 Personal history of nicotine dependence ==

== ENCOUNTER → 2022-06-29 | Outpatient (CLI) | payer MEDICARE | END | disposition home or self-care (01) | LOC: WOUNDCARE 02:21 | PROVIDERS: ATTEND Nurse Practitioner Family | DX: M86.68 Other chronic osteomyelitis, other site (principal); L89.214 Pressure ulcer of right hip, stage 4; L89.154 Pressure ulcer of sacral region, stage 4; L97.822 Non-pressure chronic ulcer of other part of left lower leg with fat layer exposed; G82.20 Paraplegia, unspecified; G62.9 Polyneuropathy, unspecified; I10 Essential (primary) hypertension; Z71.89 Other specified counseling; Z99.3 Dependence on wheelchair; Z87.891 Personal history of nicotine dependence ==

== ENCOUNTER → 2022-06-30 | Outpatient (CLI) | payer MEDICARE | END | disposition home or self-care (01) | LOC: WOUNDCARE 01:12 | PROVIDERS: ATTEND Internal Medicine | DX: M86.68 Other chronic osteomyelitis, other site (principal); L89.214 Pressure ulcer of right hip, stage 4; L89.154 Pressure ulcer of sacral region, stage 4; L97.822 Non-pressure chronic ulcer of other part of left lower leg with fat layer exposed; G82.20 Paraplegia, unspecified; G62.9 Polyneuropathy, unspecified; I10 Essential (primary) hypertension; Z99.3 Dependence on wheelchair; Z71.89 Other specified counseling; Z87.891 Personal history of nicotine dependence ==

== ENCOUNTER → 2022-07-04 | Outpatient (CLI) | payer MEDICARE | END | disposition home or self-care (01) | LOC: WOUNDCARE 01:23 | PROVIDERS: ATTEND Internal Medicine | DX: M86.68 Other chronic osteomyelitis, other site (principal); L89.214 Pressure ulcer of right hip, stage 4; L89.154 Pressure ulcer of sacral region, stage 4; L97.822 Non-pressure chronic ulcer of other part of left lower leg with fat layer exposed; G82.20 Paraplegia, unspecified; G62.9 Polyneuropathy, unspecified; I10 Essential (primary) hypertension; Z71.89 Other specified counseling; Z99.3 Dependence on wheelchair; Z87.891 Personal history of nicotine dependence ==

== ENCOUNTER → 2022-07-05 | Outpatient (CLI) | payer MEDICARE | END | disposition home or self-care (01) | LOC: WOUNDCARE 00:42 | PROVIDERS: ATTEND Nurse Practitioner Family | DX: M86.68 Other chronic osteomyelitis, other site (principal); L89.214 Pressure ulcer of right hip, stage 4; L89.154 Pressure ulcer of sacral region, stage 4; L97.822 Non-pressure chronic ulcer of other part of left lower leg with fat layer exposed; G82.20 Paraplegia, unspecified; G62.9 Polyneuropathy, unspecified; I10 Essential (primary) hypertension; Z99.3 Dependence on wheelchair; Z71.89 Other specified counseling; Z87.891 Personal history of nicotine dependence ==

== ENCOUNTER → 2022-07-06 | Outpatient (CLI) | payer MEDICARE | END | disposition home or self-care (01) | LOC: WOUNDCARE 00:43 | PROVIDERS: ATTEND Nurse Practitioner Family | DX: M86.68 Other chronic osteomyelitis, other site (principal); L89.214 Pressure ulcer of right hip, stage 4; L89.154 Pressure ulcer of sacral region, stage 4; L97.822 Non-pressure chronic ulcer of other part of left lower leg with fat layer exposed; G82.20 Paraplegia, unspecified; G62.9 Polyneuropathy, unspecified; I10 Essential (primary) hypertension; Z99.3 Dependence on wheelchair; Z71.89 Other specified counseling; Z87.891 Personal history of nicotine dependence ==

== ENCOUNTER → 2022-07-07 | Outpatient (CLI) | payer MEDICARE | END | disposition home or self-care (01) | LOC: WOUNDCARE 00:51 | PROVIDERS: ATTEND Nurse Practitioner Family | DX: M86.68 Other chronic osteomyelitis, other site (principal); L89.214 Pressure ulcer of right hip, stage 4; L89.154 Pressure ulcer of sacral region, stage 4; L97.822 Non-pressure chronic ulcer of other part of left lower leg with fat layer exposed; G82.20 Paraplegia, unspecified; G62.9 Polyneuropathy, unspecified; I10 Essential (primary) hypertension; Z99.3 Dependence on wheelchair; Z71.89 Other specified counseling; Z87.891 Personal history of nicotine dependence ==

== ENCOUNTER → 2022-07-10 | Outpatient (CLI) | payer MEDICARE | END | disposition home or self-care (01) | LOC: WOUNDCARE 00:04 | PROVIDERS: ATTEND Internal Medicine | DX: M86.68 Other chronic osteomyelitis, other site (principal); L89.214 Pressure ulcer of right hip, stage 4; L89.154 Pressure ulcer of sacral region, stage 4; L97.822 Non-pressure chronic ulcer of other part of left lower leg with fat layer exposed; G82.20 Paraplegia, unspecified; G62.9 Polyneuropathy, unspecified; I10 Essential (primary) hypertension; Z99.3 Dependence on wheelchair; Z71.89 Other specified counseling; Z87.891 Personal history of nicotine dependence ==

== ENCOUNTER → 2022-07-13 | Outpatient (CLI) | payer MEDICARE | END | disposition home or self-care (01) | LOC: WOUNDCARE 00:40 | PROVIDERS: ATTEND Nurse Practitioner Family | DX: M86.68 Other chronic osteomyelitis, other site (principal); L89.214 Pressure ulcer of right hip, stage 4; L89.154 Pressure ulcer of sacral region, stage 4; L97.822 Non-pressure chronic ulcer of other part of left lower leg with fat layer exposed; G82.20 Paraplegia, unspecified; G62.9 Polyneuropathy, unspecified; I10 Essential (primary) hypertension; Z71.89 Other specified counseling; Z99.3 Dependence on wheelchair; Z87.891 Personal history of nicotine dependence ==

== ENCOUNTER → 2022-07-14 | Outpatient (CLI) | payer MEDICARE | END | disposition home or self-care (01) | LOC: WOUNDCARE 01:19 | PROVIDERS: ATTEND Internal Medicine | DX: M86.68 Other chronic osteomyelitis, other site (principal); L89.214 Pressure ulcer of right hip, stage 4; L89.154 Pressure ulcer of sacral region, stage 4; L97.822 Non-pressure chronic ulcer of other part of left lower leg with fat layer exposed; I10 Essential (primary) hypertension; G82.20 Paraplegia, unspecified; G62.9 Polyneuropathy, unspecified; Z71.89 Other specified counseling; Z99.3 Dependence on wheelchair; Z87.891 Personal history of nicotine dependence ==

== ENCOUNTER 2022-07-26 10:59 | Emergency (ER) | payer MEDICARE ==
[~2022-07-26] VITALS: Ht 177.8 cm; Wt 68.0 kg
[2022-07-26 12:12] LABS: BASO % 0.4 % (0.0-1.0); EOS # 0.1 10*3/uL (0.0-0.4); EOS % 1.3 % (1.0-4.0); HEMATOCRIT 31.1 % (42.0-52.0); LYMPH # 1.3 10*3/uL (1.3-4.4); LYMPH % 16.1 % (27.0-41.0); MEAN CELL VOLUME 74.9 fl (80.0-94.0); MEAN CORPUSCULAR HGB 22.7 pg (27.0-31.0); MEAN CORPUSCULAR HGB CONC 30.2 g/dl (33.0-37.0); MEAN PLATELET VOLUME 8.9 fl (9.6-12.3); MONO # 0.6 10*3/uL (0.1-1.0); MONO % 7.1 % (3.0-9.0); NEUT # 6.1 10*3/uL (2.3-7.9); NEUT % 74.7 % (47.0-73.0); PLATELET COUNT AUTOMATED 362 10*3/uL (130-400); RED BLOOD COUNT 4.15 10*6/uL (4.50-5.90); RED CELL DISTRI WIDTH 19.9 % (0-14.5); WHITE BLOOD COUNT 8.2 10*3/uL (4.8-10.8)
[2022-07-26 12:23] LABS: ACT PARTIAL THROMBO TIME 36.2 SECONDS (20.0-32.1); INTERNATIONAL NORM RATIO 1.1 (2.0-3.5)
[2022-07-26 12:27] LABS: BILIRUBIN Negative (Negative); BLOOD 1+ (Negative); CLARITY Clear (Clear); COLOR Yellow (Yellow); GLUCOSE Negative (Negative); KETONE Negative (Negative); LEUKO ESTERASE 1+ (Negative); NITRITE Negative (Negative); PH 5.5 (4.5-8.0); SPECIFIC GRAVITY 1.015 (1.001-1.030); UROBILINOGEN 0.2 E.U./dl (0.0-1.0)
[2022-07-26 12:29] LABS: ALKALINE PHOSPHATASE 88 U/L (46-116); BUN 10 mg/dl (9-23); CHLORIDE 106 mmol/L (98-107); LIPASE 27 U/L (12-53); POTASSIUM 3.9 mmol/L (3.4-5.1); SGPT/ALT 8 U/L (10-49); TOTAL PROTEIN 6.6 gm/dL (6.0-8.0)
[2022-07-26 12:35] LABS: MUCOUS TRACE
[2022-07-26] MEDS ORDERED: ENALAPRIL20 MG PO (16:04)
[2022-07-26] MEDS ORDERED: ASPIRIN81 M1 PO (16:05)
[2022-07-26] MEDS ORDERED: ONDANSETRON4 MG SL (16:30)
== END 2022-07-26 16:42 | disposition home or self-care (01) ==
LOC: ED 10:59
PROVIDERS: Emergency Medicine
DX: E86.0 Dehydration (principal); R11.0 Nausea; R10.9 Unspecified abdominal pain; I10 Essential (primary) hypertension; Z88.2 Allergy status to sulfonamides; Z88.1 Allergy status to other antibiotic agents; Z88.8 Allergy status to other drugs, medicaments and biological substances; Z90.89 Acquired absence of other organs; Z98.890 Other specified postprocedural states; F17.210 Nicotine dependence, cigarettes, uncomplicated

== ENCOUNTER → 2022-07-27 | Outpatient (CLI) | payer MEDICARE ==
[~2022-07-27] MED LIST changes: +ASPIRIN81 M1 PO; +ENALAPRIL20 MG PO; +ONDANSETRON4 MG SL
== END | disposition home or self-care (01) ==
LOC: WOUNDCARE 01:56
PROVIDERS: ATTEND Student in an Organized Health Care Education/Training Program
DX: M86.68 Other chronic osteomyelitis, other site (principal); G82.20 Paraplegia, unspecified; L97.822 Non-pressure chronic ulcer of other part of left lower leg with fat layer exposed; L89.214 Pressure ulcer of right hip, stage 4; L89.154 Pressure ulcer of sacral region, stage 4; Z99.3 Dependence on wheelchair; Z71.89 Other specified counseling

== ENCOUNTER → 2022-07-28 | Outpatient (CLI) | payer MEDICARE | LOC: WOUNDCARE 00:23 | PROVIDERS: ATTEND Student in an Organized Health Care Education/Training Program | DX: M86.68 Other chronic osteomyelitis, other site (principal); L89.214 Pressure ulcer of right hip, stage 4; L89.154 Pressure ulcer of sacral region, stage 4; L97.822 Non-pressure chronic ulcer of other part of left lower leg with fat layer exposed; G82.20 Paraplegia, unspecified; G62.9 Polyneuropathy, unspecified; I10 Essential (primary) hypertension; Z71.89 Other specified counseling; Z99.3 Dependence on wheelchair; Z87.891 Personal history of nicotine dependence ==

== ENCOUNTER → 2022-08-01 | Outpatient (CLI) | payer MEDICARE | END | disposition home or self-care (01) | LOC: WOUNDCARE 01:00 | PROVIDERS: ATTEND Nurse Practitioner Family | DX: M86.68 Other chronic osteomyelitis, other site (principal); L97.822 Non-pressure chronic ulcer of other part of left lower leg with fat layer exposed; L89.214 Pressure ulcer of right hip, stage 4; L89.154 Pressure ulcer of sacral region, stage 4; G82.20 Paraplegia, unspecified; G62.9 Polyneuropathy, unspecified; I10 Essential (primary) hypertension; Z99.3 Dependence on wheelchair; Z71.89 Other specified counseling; Z87.891 Personal history of nicotine dependence ==

== ENCOUNTER → 2022-08-02 | Outpatient (CLI) | payer MEDICARE | END | disposition home or self-care (01) | LOC: WOUNDCARE 01:44 | PROVIDERS: ATTEND Nurse Practitioner Family | DX: M86.68 Other chronic osteomyelitis, other site (principal); L97.822 Non-pressure chronic ulcer of other part of left lower leg with fat layer exposed; L89.214 Pressure ulcer of right hip, stage 4; L89.154 Pressure ulcer of sacral region, stage 4; G82.20 Paraplegia, unspecified; G62.9 Polyneuropathy, unspecified; I10 Essential (primary) hypertension; Z99.3 Dependence on wheelchair; Z87.891 Personal history of nicotine dependence; Z71.89 Other specified counseling ==

== ENCOUNTER → 2022-08-03 | Outpatient (CLI) | payer MEDICARE | END | disposition home or self-care (01) | LOC: WOUNDCARE 01:03 | PROVIDERS: ATTEND Nurse Practitioner Family | DX: M86.68 Other chronic osteomyelitis, other site (principal); L89.214 Pressure ulcer of right hip, stage 4; L89.154 Pressure ulcer of sacral region, stage 4; L97.822 Non-pressure chronic ulcer of other part of left lower leg with fat layer exposed; G82.20 Paraplegia, unspecified; G62.9 Polyneuropathy, unspecified; I10 Essential (primary) hypertension; Z99.3 Dependence on wheelchair; Z87.891 Personal history of nicotine dependence; Z71.89 Other specified counseling ==

== ENCOUNTER → 2022-08-04 | Outpatient (CLI) | payer MEDICARE | END | disposition home or self-care (01) | LOC: WOUNDCARE 01:23 | PROVIDERS: ATTEND Internal Medicine | DX: M86.68 Other chronic osteomyelitis, other site (principal); L89.214 Pressure ulcer of right hip, stage 4; L89.154 Pressure ulcer of sacral region, stage 4; L97.822 Non-pressure chronic ulcer of other part of left lower leg with fat layer exposed; G82.20 Paraplegia, unspecified; G62.9 Polyneuropathy, unspecified; I10 Essential (primary) hypertension; Z99.3 Dependence on wheelchair; Z71.89 Other specified counseling; Z87.891 Personal history of nicotine dependence ==

== ENCOUNTER → 2022-08-08 | Outpatient (CLI) | payer MEDICARE | END | disposition home or self-care (01) | LOC: WOUNDCARE 01:38 | PROVIDERS: ATTEND Nurse Practitioner Family | DX: M86.68 Other chronic osteomyelitis, other site (principal); L89.214 Pressure ulcer of right hip, stage 4; L89.154 Pressure ulcer of sacral region, stage 4; L97.822 Non-pressure chronic ulcer of other part of left lower leg with fat layer exposed; G82.20 Paraplegia, unspecified; G62.9 Polyneuropathy, unspecified; I10 Essential (primary) hypertension; Z99.3 Dependence on wheelchair; Z71.89 Other specified counseling; Z87.891 Personal history of nicotine dependence ==

== ENCOUNTER → 2022-08-09 | Outpatient (CLI) | payer MEDICARE | LOC: WOUNDCARE 02:13 | PROVIDERS: ATTEND Nurse Practitioner Family | DX: M86.68 Other chronic osteomyelitis, other site (principal); L97.822 Non-pressure chronic ulcer of other part of left lower leg with fat layer exposed; L89.214 Pressure ulcer of right hip, stage 4; L89.154 Pressure ulcer of sacral region, stage 4; G82.20 Paraplegia, unspecified; G62.9 Polyneuropathy, unspecified; I10 Essential (primary) hypertension; Z99.3 Dependence on wheelchair; Z71.89 Other specified counseling; Z87.891 Personal history of nicotine dependence ==

== ENCOUNTER → 2022-08-09 | Outpatient (CLI) | payer MEDICARE | END | disposition home or self-care (01) | LOC: WOUNDCARE 02:17 | PROVIDERS: ATTEND Nurse Practitioner Family | DX: M86.68 Other chronic osteomyelitis, other site (principal); L97.822 Non-pressure chronic ulcer of other part of left lower leg with fat layer exposed; L89.214 Pressure ulcer of right hip, stage 4; L89.154 Pressure ulcer of sacral region, stage 4; G82.20 Paraplegia, unspecified; G62.9 Polyneuropathy, unspecified; I10 Essential (primary) hypertension; Z99.3 Dependence on wheelchair; Z71.89 Other specified counseling ==

== ENCOUNTER → 2022-08-11 | Outpatient (CLI) | payer MEDICARE | END | disposition home or self-care (01) | LOC: WOUNDCARE 00:48 | PROVIDERS: ATTEND Nurse Practitioner Family | DX: M86.68 Other chronic osteomyelitis, other site (principal); L97.822 Non-pressure chronic ulcer of other part of left lower leg with fat layer exposed; L89.214 Pressure ulcer of right hip, stage 4; L89.154 Pressure ulcer of sacral region, stage 4; I10 Essential (primary) hypertension; G82.20 Paraplegia, unspecified; G62.9 Polyneuropathy, unspecified; Z99.3 Dependence on wheelchair; Z71.89 Other specified counseling; Z87.891 Personal history of nicotine dependence ==

== ENCOUNTER → 2022-08-16 | Outpatient (CLI) | payer MEDICARE | END | disposition home or self-care (01) | LOC: WOUNDCARE 01:26 | PROVIDERS: ATTEND Nurse Practitioner Family | DX: M86.68 Other chronic osteomyelitis, other site (principal); L89.214 Pressure ulcer of right hip, stage 4; L89.154 Pressure ulcer of sacral region, stage 4; L97.822 Non-pressure chronic ulcer of other part of left lower leg with fat layer exposed; I10 Essential (primary) hypertension; G62.9 Polyneuropathy, unspecified; G82.20 Paraplegia, unspecified; Z71.89 Other specified counseling; Z99.3 Dependence on wheelchair; Z87.891 Personal history of nicotine dependence ==

== ENCOUNTER → 2022-08-17 | Outpatient (CLI) | payer MEDICARE | END | disposition home or self-care (01) | LOC: WOUNDCARE 01:31 | PROVIDERS: ATTEND Nurse Practitioner Family | DX: M86.68 Other chronic osteomyelitis, other site (principal); L97.822 Non-pressure chronic ulcer of other part of left lower leg with fat layer exposed; L89.214 Pressure ulcer of right hip, stage 4; L89.154 Pressure ulcer of sacral region, stage 4; G82.20 Paraplegia, unspecified; G62.9 Polyneuropathy, unspecified; I10 Essential (primary) hypertension; Z99.3 Dependence on wheelchair; Z71.89 Other specified counseling; Z87.891 Personal history of nicotine dependence ==

== ENCOUNTER → 2022-08-18 | Outpatient (CLI) | payer MEDICARE | END | disposition home or self-care (01) | LOC: WOUNDCARE 01:01 | PROVIDERS: ATTEND Nurse Practitioner Family | DX: M86.68 Other chronic osteomyelitis, other site (principal); L97.822 Non-pressure chronic ulcer of other part of left lower leg with fat layer exposed; L89.214 Pressure ulcer of right hip, stage 4; L89.154 Pressure ulcer of sacral region, stage 4; G82.20 Paraplegia, unspecified; G62.9 Polyneuropathy, unspecified; I10 Essential (primary) hypertension; Z99.3 Dependence on wheelchair; Z71.89 Other specified counseling; Z87.891 Personal history of nicotine dependence ==

== ENCOUNTER → 2022-08-21 | Outpatient (CLI) | payer MEDICARE | END | disposition home or self-care (01) | LOC: WOUNDCARE 02:09 | PROVIDERS: ATTEND Nurse Practitioner Primary Care | DX: M86.68 Other chronic osteomyelitis, other site (principal); L89.214 Pressure ulcer of right hip, stage 4; L89.154 Pressure ulcer of sacral region, stage 4; L97.822 Non-pressure chronic ulcer of other part of left lower leg with fat layer exposed; I10 Essential (primary) hypertension; G62.9 Polyneuropathy, unspecified; G82.20 Paraplegia, unspecified; Z99.3 Dependence on wheelchair; Z71.89 Other specified counseling; Z87.891 Personal history of nicotine dependence ==

== ENCOUNTER → 2022-08-23 | Outpatient (CLI) | payer MEDICARE | END | disposition home or self-care (01) | LOC: WOUNDCARE 01:27 | PROVIDERS: ATTEND Nurse Practitioner Family | DX: M86.68 Other chronic osteomyelitis, other site (principal); L89.154 Pressure ulcer of sacral region, stage 4; L89.214 Pressure ulcer of right hip, stage 4; L97.822 Non-pressure chronic ulcer of other part of left lower leg with fat layer exposed; G82.20 Paraplegia, unspecified; G62.9 Polyneuropathy, unspecified; I10 Essential (primary) hypertension; Z99.3 Dependence on wheelchair; Z71.89 Other specified counseling; Z87.891 Personal history of nicotine dependence ==

== ENCOUNTER → 2022-08-25 | Outpatient (CLI) | payer MEDICARE | END | disposition home or self-care (01) | LOC: WOUNDCARE 01:46 | PROVIDERS: ATTEND Nurse Practitioner Family | DX: M86.68 Other chronic osteomyelitis, other site (principal); L89.214 Pressure ulcer of right hip, stage 4; L89.154 Pressure ulcer of sacral region, stage 4; L97.822 Non-pressure chronic ulcer of other part of left lower leg with fat layer exposed; G82.20 Paraplegia, unspecified; G62.9 Polyneuropathy, unspecified; I10 Essential (primary) hypertension; Z99.3 Dependence on wheelchair; Z71.89 Other specified counseling ==

== ENCOUNTER → 2022-08-30 | Outpatient (CLI) | payer MEDICARE | END | disposition home or self-care (01) | LOC: WOUNDCARE 08-22 00:47 | PROVIDERS: ATTEND Nurse Practitioner Family | DX: L89.154 Pressure ulcer of sacral region, stage 4 (principal); L89.214 Pressure ulcer of right hip, stage 4; L97.822 Non-pressure chronic ulcer of other part of left lower leg with fat layer exposed; G82.20 Paraplegia, unspecified; G62.9 Polyneuropathy, unspecified; M86.60 Other chronic osteomyelitis, unspecified site; I10 Essential (primary) hypertension; Z71.89 Other specified counseling; Z99.3 Dependence on wheelchair; Z87.891 Personal history of nicotine dependence ==

== ENCOUNTER → 2022-09-06 | Outpatient (CLI) | payer MEDICARE | END | disposition home or self-care (01) | LOC: WOUNDCARE 02:45 | PROVIDERS: ATTEND Nurse Practitioner Primary Care | DX: L89.154 Pressure ulcer of sacral region, stage 4 (principal); L89.214 Pressure ulcer of right hip, stage 4; L97.822 Non-pressure chronic ulcer of other part of left lower leg with fat layer exposed; G82.20 Paraplegia, unspecified; G62.9 Polyneuropathy, unspecified; M86.60 Other chronic osteomyelitis, unspecified site; I10 Essential (primary) hypertension; Z71.89 Other specified counseling; Z99.3 Dependence on wheelchair; Z87.891 Personal history of nicotine dependence ==

== ENCOUNTER → 2022-09-14 | Outpatient (CLI) | payer MEDICARE | END | disposition home or self-care (01) | LOC: WOUNDCARE 02:02 | PROVIDERS: ATTEND Nurse Practitioner Family | DX: L89.154 Pressure ulcer of sacral region, stage 4 (principal); L89.214 Pressure ulcer of right hip, stage 4; L97.822 Non-pressure chronic ulcer of other part of left lower leg with fat layer exposed; G82.20 Paraplegia, unspecified; M86.60 Other chronic osteomyelitis, unspecified site; G62.9 Polyneuropathy, unspecified; I10 Essential (primary) hypertension; Z99.3 Dependence on wheelchair; Z71.89 Other specified counseling; Z87.891 Personal history of nicotine dependence ==

== ENCOUNTER → 2022-09-21 | Outpatient (CLI) | payer MEDICARE | LOC: WOUNDCARE 02:47 | PROVIDERS: ATTEND Nurse Practitioner Primary Care | DX: Z53.21 Procedure and treatment not carried out due to patient leaving prior to being seen by health care provider (principal) ==

== ENCOUNTER → 2022-09-22 | Outpatient (CLI) | payer MEDICARE | END | disposition home or self-care (01) | LOC: WOUNDCARE 00:55 | PROVIDERS: ATTEND Nurse Practitioner Primary Care | DX: L89.154 Pressure ulcer of sacral region, stage 4 (principal); L89.214 Pressure ulcer of right hip, stage 4; L97.822 Non-pressure chronic ulcer of other part of left lower leg with fat layer exposed; M86.60 Other chronic osteomyelitis, unspecified site; G82.20 Paraplegia, unspecified; G62.9 Polyneuropathy, unspecified; I10 Essential (primary) hypertension; Z99.3 Dependence on wheelchair; Z71.89 Other specified counseling; Z87.891 Personal history of nicotine dependence ==

== ENCOUNTER → 2022-10-04 | Outpatient (CLI) | payer MEDICARE | END | disposition home or self-care (01) | LOC: WOUNDCARE 00:46 | PROVIDERS: ATTEND Nurse Practitioner Family | DX: L89.154 Pressure ulcer of sacral region, stage 4 (principal); L89.214 Pressure ulcer of right hip, stage 4; L97.822 Non-pressure chronic ulcer of other part of left lower leg with fat layer exposed; M86.60 Other chronic osteomyelitis, unspecified site; G62.9 Polyneuropathy, unspecified; I10 Essential (primary) hypertension; G82.20 Paraplegia, unspecified; Z99.3 Dependence on wheelchair; Z87.891 Personal history of nicotine dependence; Z71.89 Other specified counseling ==

== ENCOUNTER → 2022-10-18 | Outpatient (CLI) | payer MEDICARE | END | disposition home or self-care (01) | LOC: WOUNDCARE 00:24 | PROVIDERS: ATTEND Nurse Practitioner Family | DX: L89.214 Pressure ulcer of right hip, stage 4 (principal); L89.154 Pressure ulcer of sacral region, stage 4; L97.822 Non-pressure chronic ulcer of other part of left lower leg with fat layer exposed; M86.60 Other chronic osteomyelitis, unspecified site; G82.20 Paraplegia, unspecified; G62.9 Polyneuropathy, unspecified; I10 Essential (primary) hypertension; Z93.3 Colostomy status; Z87.891 Personal history of nicotine dependence ==

== ENCOUNTER → 2022-11-01 | Outpatient (CLI) | payer MEDICARE | END | disposition home or self-care (01) | LOC: WOUNDCARE 01:47 | PROVIDERS: ATTEND Nurse Practitioner Family | DX: L89.154 Pressure ulcer of sacral region, stage 4 (principal); L89.214 Pressure ulcer of right hip, stage 4; L97.822 Non-pressure chronic ulcer of other part of left lower leg with fat layer exposed; M86.60 Other chronic osteomyelitis, unspecified site; G82.20 Paraplegia, unspecified; G62.9 Polyneuropathy, unspecified; I10 Essential (primary) hypertension; Z99.3 Dependence on wheelchair; Z87.891 Personal history of nicotine dependence ==

== ENCOUNTER → 2022-11-08 | Outpatient (CLI) | payer MEDICARE | END | disposition home or self-care (01) | LOC: WOUNDCARE 02:10 | PROVIDERS: ATTEND Nurse Practitioner Family | DX: L89.154 Pressure ulcer of sacral region, stage 4 (principal); L89.214 Pressure ulcer of right hip, stage 4; G82.20 Paraplegia, unspecified; G62.9 Polyneuropathy, unspecified; M86.60 Other chronic osteomyelitis, unspecified site; I10 Essential (primary) hypertension; Z99.3 Dependence on wheelchair; Z87.891 Personal history of nicotine dependence ==

== ENCOUNTER → 2022-11-16 | Outpatient (CLI) | payer MEDICARE | END | disposition home or self-care (01) | LOC: WOUNDCARE 00:50 | PROVIDERS: ATTEND Nurse Practitioner Primary Care | DX: L89.154 Pressure ulcer of sacral region, stage 4 (principal); L89.214 Pressure ulcer of right hip, stage 4; L97.822 Non-pressure chronic ulcer of other part of left lower leg with fat layer exposed; M86.60 Other chronic osteomyelitis, unspecified site; G82.20 Paraplegia, unspecified; G62.9 Polyneuropathy, unspecified; I10 Essential (primary) hypertension; Z99.3 Dependence on wheelchair; Z87.891 Personal history of nicotine dependence ==

== ENCOUNTER → 2022-11-24 | Outpatient (CLI) | payer MEDICARE | END | disposition home or self-care (01) | LOC: WOUNDCARE 08:57 | PROVIDERS: ATTEND Nurse Practitioner Family | DX: L89.154 Pressure ulcer of sacral region, stage 4 (principal); L89.214 Pressure ulcer of right hip, stage 4; L97.822 Non-pressure chronic ulcer of other part of left lower leg with fat layer exposed; M86.60 Other chronic osteomyelitis, unspecified site; G62.9 Polyneuropathy, unspecified; G82.20 Paraplegia, unspecified; I10 Essential (primary) hypertension; Z99.3 Dependence on wheelchair; Z87.891 Personal history of nicotine dependence ==

== ENCOUNTER → 2022-12-06 | Outpatient (CLI) | payer MEDICARE | END | disposition home or self-care (01) | LOC: WOUNDCARE 01:20 | PROVIDERS: ATTEND Nurse Practitioner Family | DX: L89.154 Pressure ulcer of sacral region, stage 4 (principal); L89.214 Pressure ulcer of right hip, stage 4; L97.822 Non-pressure chronic ulcer of other part of left lower leg with fat layer exposed; M86.60 Other chronic osteomyelitis, unspecified site; I10 Essential (primary) hypertension; G82.20 Paraplegia, unspecified; G62.9 Polyneuropathy, unspecified; Z99.3 Dependence on wheelchair; Z87.891 Personal history of nicotine dependence ==

== ENCOUNTER → 2022-12-20 | Outpatient (CLI) | payer MEDICARE | END | disposition home or self-care (01) | LOC: WOUNDCARE 01:53 | PROVIDERS: ATTEND Nurse Practitioner Family | DX: L89.154 Pressure ulcer of sacral region, stage 4 (principal); L89.214 Pressure ulcer of right hip, stage 4; L97.822 Non-pressure chronic ulcer of other part of left lower leg with fat layer exposed; G82.20 Paraplegia, unspecified; M86.60 Other chronic osteomyelitis, unspecified site; G62.9 Polyneuropathy, unspecified; Z99.3 Dependence on wheelchair; Z87.891 Personal history of nicotine dependence ==

== ENCOUNTER → 2023-01-17 | Outpatient (CLI) | payer MEDICARE | LOC: WOUNDCARE 01:21 | PROVIDERS: ATTEND Nurse Practitioner Family | DX: L89.154 Pressure ulcer of sacral region, stage 4 (principal); L89.214 Pressure ulcer of right hip, stage 4; L97.822 Non-pressure chronic ulcer of other part of left lower leg with fat layer exposed; M86.60 Other chronic osteomyelitis, unspecified site; G82.20 Paraplegia, unspecified; G62.9 Polyneuropathy, unspecified; I10 Essential (primary) hypertension; Z99.3 Dependence on wheelchair; Z87.891 Personal history of nicotine dependence ==

== ENCOUNTER → 2023-01-31 | Outpatient (CLI) | payer MEDICARE | END | disposition home or self-care (01) | LOC: WOUNDCARE 02:17 | PROVIDERS: ATTEND Nurse Practitioner Family | DX: L89.154 Pressure ulcer of sacral region, stage 4 (principal); L89.214 Pressure ulcer of right hip, stage 4; G82.20 Paraplegia, unspecified; M86.60 Other chronic osteomyelitis, unspecified site; L97.822 Non-pressure chronic ulcer of other part of left lower leg with fat layer exposed; G62.9 Polyneuropathy, unspecified; I10 Essential (primary) hypertension; Z99.3 Dependence on wheelchair; Z87.891 Personal history of nicotine dependence ==

== ENCOUNTER → 2023-02-14 | Outpatient (CLI) | payer MEDICARE | END | disposition home or self-care (01) | LOC: WOUNDCARE 01:55 | PROVIDERS: ATTEND Nurse Practitioner Family | DX: L89.154 Pressure ulcer of sacral region, stage 4 (principal); L89.214 Pressure ulcer of right hip, stage 4; L97.822 Non-pressure chronic ulcer of other part of left lower leg with fat layer exposed; G82.20 Paraplegia, unspecified; G62.9 Polyneuropathy, unspecified; M86.60 Other chronic osteomyelitis, unspecified site; Z99.3 Dependence on wheelchair; Z87.891 Personal history of nicotine dependence ==

== ENCOUNTER → 2023-02-28 | Outpatient (CLI) | payer MEDICARE | LOC: WOUNDCARE 01:30 | PROVIDERS: ATTEND Nurse Practitioner Family | DX: L89.154 Pressure ulcer of sacral region, stage 4 (principal); L89.214 Pressure ulcer of right hip, stage 4; L97.822 Non-pressure chronic ulcer of other part of left lower leg with fat layer exposed; G82.20 Paraplegia, unspecified; M86.60 Other chronic osteomyelitis, unspecified site; G62.9 Polyneuropathy, unspecified; I10 Essential (primary) hypertension; Z99.3 Dependence on wheelchair; Z87.891 Personal history of nicotine dependence ==

== ENCOUNTER → 2023-03-14 | Outpatient (CLI) | payer MEDICARE | END | disposition home or self-care (01) | LOC: WOUNDCARE 01:01 | PROVIDERS: ATTEND Nurse Practitioner Family | DX: L89.154 Pressure ulcer of sacral region, stage 4 (principal); L89.214 Pressure ulcer of right hip, stage 4; G82.20 Paraplegia, unspecified; M86.60 Other chronic osteomyelitis, unspecified site; L97.822 Non-pressure chronic ulcer of other part of left lower leg with fat layer exposed; G62.9 Polyneuropathy, unspecified; I10 Essential (primary) hypertension; Z99.3 Dependence on wheelchair; Z87.891 Personal history of nicotine dependence ==

== ENCOUNTER → 2023-04-05 | Outpatient (CLI) | payer MEDICARE | END | disposition home or self-care (01) | LOC: WOUNDCARE 03:50 | PROVIDERS: ATTEND Nurse Practitioner Family | DX: L89.154 Pressure ulcer of sacral region, stage 4 (principal); L89.214 Pressure ulcer of right hip, stage 4; E11.622 Type 2 diabetes mellitus with other skin ulcer; L97.822 Non-pressure chronic ulcer of other part of left lower leg with fat layer exposed; E11.69 Type 2 diabetes mellitus with other specified complication; M86.60 Other chronic osteomyelitis, unspecified site; E11.40 Type 2 diabetes mellitus with diabetic neuropathy, unspecified; G82.20 Paraplegia, unspecified; I10 Essential (primary) hypertension; Z99.3 Dependence on wheelchair; Z87.891 Personal history of nicotine dependence ==

== ENCOUNTER → 2023-04-18 | Outpatient (CLI) | payer MEDICARE | END | disposition home or self-care (01) | LOC: WOUNDCARE 00:35 | PROVIDERS: ATTEND Nurse Practitioner Family | DX: L89.154 Pressure ulcer of sacral region, stage 4 (principal); L89.214 Pressure ulcer of right hip, stage 4; L97.822 Non-pressure chronic ulcer of other part of left lower leg with fat layer exposed; L84 Corns and callosities; G82.20 Paraplegia, unspecified; M86.68 Other chronic osteomyelitis, other site; I10 Essential (primary) hypertension; Z99.3 Dependence on wheelchair; Z87.891 Personal history of nicotine dependence ==

== ENCOUNTER → 2023-05-24 | Outpatient (CLI) | payer MEDICARE | LOC: WOUNDCARE 02:05 | PROVIDERS: ATTEND Nurse Practitioner Family | DX: L89.154 Pressure ulcer of sacral region, stage 4 (principal); L89.214 Pressure ulcer of right hip, stage 4; E11.622 Type 2 diabetes mellitus with other skin ulcer; L97.822 Non-pressure chronic ulcer of other part of left lower leg with fat layer exposed; E11.40 Type 2 diabetes mellitus with diabetic neuropathy, unspecified; G82.20 Paraplegia, unspecified; M86.60 Other chronic osteomyelitis, unspecified site; L84 Corns and callosities; Z99.3 Dependence on wheelchair; Z87.891 Personal history of nicotine dependence ==

== ENCOUNTER → 2023-05-30 | Outpatient (CLI) | payer MEDICARE | LOC: WOUNDCARE 03:01 | PROVIDERS: ATTEND Nurse Practitioner Family | DX: L89.154 Pressure ulcer of sacral region, stage 4 (principal); L89.214 Pressure ulcer of right hip, stage 4; L97.822 Non-pressure chronic ulcer of other part of left lower leg with fat layer exposed; G82.20 Paraplegia, unspecified; M86.60 Other chronic osteomyelitis, unspecified site; L84 Corns and callosities; I10 Essential (primary) hypertension; G62.9 Polyneuropathy, unspecified; Z99.3 Dependence on wheelchair; Z87.891 Personal history of nicotine dependence ==

== ENCOUNTER → 2023-06-06 | Outpatient (CLI) | payer MEDICARE | END | disposition home or self-care (01) | LOC: WOUNDCARE 02:54 | PROVIDERS: ATTEND Nurse Practitioner Family | DX: L89.154 Pressure ulcer of sacral region, stage 4 (principal); L89.214 Pressure ulcer of right hip, stage 4; L97.822 Non-pressure chronic ulcer of other part of left lower leg with fat layer exposed; G82.20 Paraplegia, unspecified; M86.60 Other chronic osteomyelitis, unspecified site; G62.9 Polyneuropathy, unspecified; I10 Essential (primary) hypertension; Z99.3 Dependence on wheelchair; Z87.891 Personal history of nicotine dependence ==

== ENCOUNTER → 2023-06-13 | Outpatient (CLI) | payer MEDICARE | END | disposition home or self-care (01) | LOC: WOUNDCARE 02:14 | PROVIDERS: ATTEND Nurse Practitioner Family | DX: L89.154 Pressure ulcer of sacral region, stage 4 (principal); L89.214 Pressure ulcer of right hip, stage 4; L97.822 Non-pressure chronic ulcer of other part of left lower leg with fat layer exposed; M86.60 Other chronic osteomyelitis, unspecified site; G82.20 Paraplegia, unspecified; G62.9 Polyneuropathy, unspecified; I10 Essential (primary) hypertension; Z99.3 Dependence on wheelchair; Z87.891 Personal history of nicotine dependence ==

== ENCOUNTER → 2023-06-20 | Outpatient (CLI) | payer MEDICARE | END | disposition home or self-care (01) | LOC: WOUNDCARE 04:08 | PROVIDERS: ATTEND Nurse Practitioner Family | DX: L89.154 Pressure ulcer of sacral region, stage 4 (principal); L89.214 Pressure ulcer of right hip, stage 4; L84 Corns and callosities; L97.822 Non-pressure chronic ulcer of other part of left lower leg with fat layer exposed; M86.60 Other chronic osteomyelitis, unspecified site; G82.20 Paraplegia, unspecified; I10 Essential (primary) hypertension; G62.9 Polyneuropathy, unspecified; Z99.3 Dependence on wheelchair; Z87.891 Personal history of nicotine dependence; Z79.899 Other long term (current) drug therapy ==

== ENCOUNTER → 2023-06-27 | Outpatient (CLI) | payer MEDICARE | END | disposition home or self-care (01) | LOC: WOUNDCARE 02:13 | PROVIDERS: ATTEND Nurse Practitioner Family | DX: L89.154 Pressure ulcer of sacral region, stage 4 (principal); L89.214 Pressure ulcer of right hip, stage 4; L84 Corns and callosities; L97.822 Non-pressure chronic ulcer of other part of left lower leg with fat layer exposed; M86.60 Other chronic osteomyelitis, unspecified site; G82.20 Paraplegia, unspecified; I10 Essential (primary) hypertension; G62.9 Polyneuropathy, unspecified; Z99.3 Dependence on wheelchair; Z87.891 Personal history of nicotine dependence; Z79.899 Other long term (current) drug therapy ==

== ENCOUNTER → 2023-07-18 | Outpatient (CLI) | payer MEDICARE | END | disposition home or self-care (01) | LOC: WOUNDCARE 01:39 | PROVIDERS: ATTEND Nurse Practitioner Family | DX: L89.154 Pressure ulcer of sacral region, stage 4 (principal); L89.214 Pressure ulcer of right hip, stage 4; L97.822 Non-pressure chronic ulcer of other part of left lower leg with fat layer exposed; I10 Essential (primary) hypertension; G62.9 Polyneuropathy, unspecified; G82.20 Paraplegia, unspecified; M86.60 Other chronic osteomyelitis, unspecified site; Z99.3 Dependence on wheelchair; Z87.891 Personal history of nicotine dependence; Z79.899 Other long term (current) drug therapy ==

== ENCOUNTER → 2023-07-20 | Outpatient (CLI) | payer MEDICARE ==
[2023-07-20 12:31] LABS: BASO % 0.4 % (0.0-1.0); EOS # 0.1 10*3/uL (0.0-0.4); EOS % 1.5 % (1.0-4.0); HEMATOCRIT 37.9 % (42.0-52.0); LYMPH # 1.5 10*3/uL (1.3-4.4); LYMPH % 19.8 % (27.0-41.0); MEAN CELL VOLUME 77.3 fl (80.0-94.0); MEAN CORPUSCULAR HGB 22.7 pg (27.0-31.0); MEAN CORPUSCULAR HGB CONC 29.3 g/dl (33.0-37.0); MEAN PLATELET VOLUME 8.8 fl (9.6-12.3); MONO # 0.5 10*3/uL (0.1-1.0); MONO % 6.9 % (3.0-9.0); NEUT # 5.4 10*3/uL (2.3-7.9); NEUT % 70.9 % (47.0-73.0); PLATELET COUNT AUTOMATED 438 10*3/uL (130-400); RED CELL DISTRI WIDTH 17.7 % (0-14.5); WHITE BLOOD COUNT 7.6 10*3/uL (4.8-10.8)
[2023-07-20 13:01] LABS: ALKALINE PHOSPHATASE 87 U/L (46-116); BUN 12 mg/dl (9-23); CHLORIDE 103 mmol/L (98-107); POTASSIUM 3.4 mmol/L (3.4-5.1); SGPT/ALT 14 U/L (5-49); TOTAL PROTEIN 6.9 gm/dL (6.0-8.0)
== END | disposition home or self-care (01) ==
LOC: LAB 00:43 → WOUNDCARE 00:43
PROVIDERS: ATTEND Nurse Practitioner Family
DX: L89.154 Pressure ulcer of sacral region, stage 4 (principal); L89.214 Pressure ulcer of right hip, stage 4; L97.822 Non-pressure chronic ulcer of other part of left lower leg with fat layer exposed; I10 Essential (primary) hypertension; M86.60 Other chronic osteomyelitis, unspecified site; G62.9 Polyneuropathy, unspecified; G82.20 Paraplegia, unspecified; L84 Corns and callosities; Z99.3 Dependence on wheelchair; Z87.891 Personal history of nicotine dependence; Z79.899 Other long term (current) drug therapy

== ENCOUNTER → 2023-07-25 | Outpatient (CLI) | payer MEDICARE | END | disposition home or self-care (01) | LOC: WOUNDCARE 03:29 | PROVIDERS: ATTEND Nurse Practitioner Family | DX: L89.154 Pressure ulcer of sacral region, stage 4 (principal); L89.214 Pressure ulcer of right hip, stage 4; L97.822 Non-pressure chronic ulcer of other part of left lower leg with fat layer exposed; I10 Essential (primary) hypertension; M86.60 Other chronic osteomyelitis, unspecified site; G62.9 Polyneuropathy, unspecified; G82.20 Paraplegia, unspecified; L84 Corns and callosities; Z87.891 Personal history of nicotine dependence; Z99.3 Dependence on wheelchair; Z79.899 Other long term (current) drug therapy ==

== ENCOUNTER → 2023-08-08 | Outpatient (CLI) | payer MEDICARE ==
[~2023-08-08] MED LIST changes: +HYDROCODONE-AC1 EAC1 PO; +MEROPENEM-1 GM/50 ML IV; +OXYCODONE HCL10 M1 PO
== END | disposition home or self-care (01) ==
LOC: RAD 11:43
PROVIDERS: ATTEND Orthopaedic Surgery
DX: S82.224A Nondisplaced transverse fracture of shaft of right tibia, initial encounter for closed fracture (principal); X58.XXXA Exposure to other specified factors, initial encounter; Y93.89 Activity, other specified; Y92.89 Other specified places as the place of occurrence of the external cause; Y99.8 Other external cause status

== ENCOUNTER → 2023-08-08 | Outpatient (CLI) | payer MEDICARE | END | disposition home or self-care (01) | LOC: WOUNDCARE 01:11 | PROVIDERS: ATTEND Nurse Practitioner Family | DX: L89.154 Pressure ulcer of sacral region, stage 4 (principal); L89.214 Pressure ulcer of right hip, stage 4; L97.822 Non-pressure chronic ulcer of other part of left lower leg with fat layer exposed; L84 Corns and callosities; I10 Essential (primary) hypertension; M86.60 Other chronic osteomyelitis, unspecified site; G62.9 Polyneuropathy, unspecified; G82.20 Paraplegia, unspecified; Z87.891 Personal history of nicotine dependence; Z99.3 Dependence on wheelchair; Z79.899 Other long term (current) drug therapy ==

== ENCOUNTER → 2023-08-22 | Outpatient (CLI) | payer MEDICARE | END | disposition home or self-care (01) | LOC: WOUNDCARE 00:52 | PROVIDERS: ATTEND Nurse Practitioner Family | DX: L89.154 Pressure ulcer of sacral region, stage 4 (principal); L89.314 Pressure ulcer of right buttock, stage 4; L89.214 Pressure ulcer of right hip, stage 4; L97.822 Non-pressure chronic ulcer of other part of left lower leg with fat layer exposed; L84 Corns and callosities; I10 Essential (primary) hypertension; M86.60 Other chronic osteomyelitis, unspecified site; G62.9 Polyneuropathy, unspecified; G82.20 Paraplegia, unspecified; Z87.891 Personal history of nicotine dependence; Z99.3 Dependence on wheelchair; Z79.899 Other long term (current) drug therapy ==

== ENCOUNTER → 2023-09-07 | Outpatient (CLI) | payer MEDICARE | END | disposition home or self-care (01) | LOC: WOUNDCARE 01:37 | PROVIDERS: ATTEND Nurse Practitioner Family | DX: L89.154 Pressure ulcer of sacral region, stage 4 (principal); L89.314 Pressure ulcer of right buttock, stage 4; L89.214 Pressure ulcer of right hip, stage 4; L97.822 Non-pressure chronic ulcer of other part of left lower leg with fat layer exposed; L84 Corns and callosities; I10 Essential (primary) hypertension; M86.60 Other chronic osteomyelitis, unspecified site; G62.9 Polyneuropathy, unspecified; G82.20 Paraplegia, unspecified; Z87.891 Personal history of nicotine dependence; Z99.3 Dependence on wheelchair; Z79.899 Other long term (current) drug therapy ==

== ENCOUNTER → 2023-09-12 | Outpatient (CLI) | payer MEDICARE, OTHER | END | disposition home or self-care (01) | LOC: WOUNDCARE 01:51 → ORTHO 02:25 → WOUNDCARE 04:59 → ORTHO 18:15 | PROVIDERS: ATTEND Nurse Practitioner Family | DX: S82.224D Nondisplaced transverse fracture of shaft of right tibia, subsequent encounter for closed fracture with routine healing (principal); M79.89 Other specified soft tissue disorders; X58.XXXD Exposure to other specified factors, subsequent encounter ==

== ENCOUNTER → 2023-10-03 | Outpatient (CLI) | payer MEDICARE, OTHER | END | disposition home or self-care (01) | LOC: WOUNDCARE 02:41 | PROVIDERS: ATTEND Nurse Practitioner Family | DX: L89.154 Pressure ulcer of sacral region, stage 4 (principal); L89.314 Pressure ulcer of right buttock, stage 4; L89.214 Pressure ulcer of right hip, stage 4; L97.822 Non-pressure chronic ulcer of other part of left lower leg with fat layer exposed; L84 Corns and callosities; I10 Essential (primary) hypertension; G82.20 Paraplegia, unspecified; G62.9 Polyneuropathy, unspecified; M86.8X8 Other osteomyelitis, other site; Z99.3 Dependence on wheelchair; Z87.891 Personal history of nicotine dependence; Z79.899 Other long term (current) drug therapy ==

== ENCOUNTER → 2023-10-10 | Outpatient (CLI) | payer MEDICARE, OTHER | END | disposition home or self-care (01) | LOC: WOUNDCARE 03:07 | PROVIDERS: ATTEND Nurse Practitioner Family | DX: L89.154 Pressure ulcer of sacral region, stage 4 (principal); L89.314 Pressure ulcer of right buttock, stage 4; L89.214 Pressure ulcer of right hip, stage 4; L97.822 Non-pressure chronic ulcer of other part of left lower leg with fat layer exposed; L84 Corns and callosities; I10 Essential (primary) hypertension; G82.20 Paraplegia, unspecified; G62.9 Polyneuropathy, unspecified; M86.8X8 Other osteomyelitis, other site; Z99.3 Dependence on wheelchair; Z87.891 Personal history of nicotine dependence; Z79.899 Other long term (current) drug therapy ==

== ENCOUNTER 2023-10-15 11:37 | Emergency (ER) | payer MEDICARE, OTHER ==
[~2023-10-15] VITALS: Ht 177.8 cm; Wt 65.8 kg
== END 2023-10-15 16:03 | disposition left against medical advice (07) ==
LOC: ED 11:37
DX: L08.9 Local infection of the skin and subcutaneous tissue, unspecified (principal); Z53.21 Procedure and treatment not carried out due to patient leaving prior to being seen by health care provider

== ENCOUNTER → 2023-10-15 | Outpatient (CLI) | payer MEDICARE, OTHER | END | disposition home or self-care (01) | LOC: WOUNDCARE 03:21 | PROVIDERS: ATTEND Nurse Practitioner Family | DX: L89.154 Pressure ulcer of sacral region, stage 4 (principal); L89.314 Pressure ulcer of right buttock, stage 4; L89.214 Pressure ulcer of right hip, stage 4; L97.822 Non-pressure chronic ulcer of other part of left lower leg with fat layer exposed; L84 Corns and callosities; I10 Essential (primary) hypertension; G82.20 Paraplegia, unspecified; G62.9 Polyneuropathy, unspecified; M86.8X8 Other osteomyelitis, other site; Z87.891 Personal history of nicotine dependence; Z99.3 Dependence on wheelchair; Z79.899 Other long term (current) drug therapy ==

== ENCOUNTER → 2023-10-24 | Outpatient (CLI) | payer MEDICARE, OTHER | END | disposition home or self-care (01) | LOC: WOUNDCARE 01:15 | PROVIDERS: ATTEND Nurse Practitioner Family | DX: L89.154 Pressure ulcer of sacral region, stage 4 (principal); L89.314 Pressure ulcer of right buttock, stage 4; L89.214 Pressure ulcer of right hip, stage 4; L97.822 Non-pressure chronic ulcer of other part of left lower leg with fat layer exposed; L84 Corns and callosities; I10 Essential (primary) hypertension; G82.20 Paraplegia, unspecified; G62.9 Polyneuropathy, unspecified; M86.8X8 Other osteomyelitis, other site; Z87.891 Personal history of nicotine dependence; Z99.3 Dependence on wheelchair; Z79.899 Other long term (current) drug therapy ==

== ENCOUNTER → 2023-10-25 | Outpatient (CLI) | payer MEDICARE, OTHER | END | disposition home or self-care (01) | LOC: RESCLI 00:59 | PROVIDERS: ATTEND Internal Medicine | DX: S82.224D Nondisplaced transverse fracture of shaft of right tibia, subsequent encounter for closed fracture with routine healing (principal); I10 Essential (primary) hypertension; L97.822 Non-pressure chronic ulcer of other part of left lower leg with fat layer exposed; L89.154 Pressure ulcer of sacral region, stage 4; M86.60 Other chronic osteomyelitis, unspecified site; G82.20 Paraplegia, unspecified; Z82.49 Family history of ischemic heart disease and other diseases of the circulatory system; Z79.899 Other long term (current) drug therapy; Z88.8 Allergy status to other drugs, medicaments and biological substances; Z98.890 Other specified postprocedural states; Z99.3 Dependence on wheelchair; X58.XXXD Exposure to other specified factors, subsequent encounter ==

== ENCOUNTER 2023-11-17 11:46 | Emergency (ER) | payer MEDICARE, OTHER ==
[~2023-11-17] VITALS: Ht 177.8 cm; Wt 67.1 kg
[~2023-11-17 11:46] MED LIST changes: +LEVOFLOXACIN750 M2 PO; +PANTOPRAZOLE SO40 MG PO; +PREMIERPRO RX500 M2 IV; +VITAMIN D350 MCG PO; +ZYVOX600 MG PO
[2023-11-17] MEDS ORDERED: Meropenem 500 MG in SODIUM CHLORIDE 0.9% 50 ML IV ONE (13:05)
[2023-11-17] MEDS ORDERED: SODIUM CHLORIDE 0.9% 1,000 ML IV ONE (13:05)
== END 2023-11-17 13:57 | disposition home or self-care (01) ==
LOC: ED 11:46
DX: T82.514A Breakdown (mechanical) of infusion catheter, initial encounter (principal); D64.9 Anemia, unspecified; I10 Essential (primary) hypertension; I25.2 Old myocardial infarction; F12.10 Cannabis abuse, uncomplicated; Z88.2 Allergy status to sulfonamides; Z88.8 Allergy status to other drugs, medicaments and biological substances; Z88.1 Allergy status to other antibiotic agents; Z90.89 Acquired absence of other organs; Z98.890 Other specified postprocedural states; Z87.891 Personal history of nicotine dependence; Y82.8 Other medical devices associated with adverse incidents; Y92.009 Unspecified place in unspecified non-institutional (private) residence as the place of occurrence of the external cause

== ENCOUNTER → 2023-11-19 | Day surgery (SDC) | payer MEDICARE, OTHER ==
[2023-11-19 12:09] VITALS: BP 111/65
== END | disposition home or self-care (01) ==
LOC: SDC 02:29
PROVIDERS: ATTEND Internal Medicine
DX: Z45.2 Encounter for adjustment and management of vascular access device (principal); I10 Essential (primary) hypertension; Z82.49 Family history of ischemic heart disease and other diseases of the circulatory system

== ENCOUNTER → 2023-11-21 | Outpatient (CLI) | payer OTHER | END | disposition home or self-care (01) | LOC: WOUNDCARE 02:11 | PROVIDERS: ATTEND Nurse Practitioner Family | DX: L89.154 Pressure ulcer of sacral region, stage 4 (principal); L89.314 Pressure ulcer of right buttock, stage 4; L89.214 Pressure ulcer of right hip, stage 4; L97.822 Non-pressure chronic ulcer of other part of left lower leg with fat layer exposed; L84 Corns and callosities; I10 Essential (primary) hypertension; G82.20 Paraplegia, unspecified; G62.9 Polyneuropathy, unspecified; M86.8X8 Other osteomyelitis, other site; Z87.891 Personal history of nicotine dependence; Z99.3 Dependence on wheelchair; Z79.899 Other long term (current) drug therapy ==

== ENCOUNTER → 2023-11-28 | Outpatient (CLI) | payer OTHER | END | disposition home or self-care (01) | LOC: WOUNDCARE 00:54 | PROVIDERS: ATTEND Nurse Practitioner Family | DX: L89.154 Pressure ulcer of sacral region, stage 4 (principal); L89.314 Pressure ulcer of right buttock, stage 4; L89.214 Pressure ulcer of right hip, stage 4; L97.822 Non-pressure chronic ulcer of other part of left lower leg with fat layer exposed; L84 Corns and callosities; I10 Essential (primary) hypertension; G82.20 Paraplegia, unspecified; G62.9 Polyneuropathy, unspecified; M86.8X8 Other osteomyelitis, other site; Z87.891 Personal history of nicotine dependence; Z99.3 Dependence on wheelchair; Z79.899 Other long term (current) drug therapy ==

== ENCOUNTER → 2023-12-05 | Outpatient (CLI) | payer OTHER | END | disposition home or self-care (01) | LOC: WOUNDCARE 01:01 | PROVIDERS: ATTEND Nurse Practitioner Family | DX: L89.214 Pressure ulcer of right hip, stage 4 (principal); L89.154 Pressure ulcer of sacral region, stage 4; L97.822 Non-pressure chronic ulcer of other part of left lower leg with fat layer exposed; G82.20 Paraplegia, unspecified; M86.60 Other chronic osteomyelitis, unspecified site; I10 Essential (primary) hypertension; G62.9 Polyneuropathy, unspecified; L84 Corns and callosities; Z99.3 Dependence on wheelchair; Z87.891 Personal history of nicotine dependence ==

== ENCOUNTER → 2023-12-12 | Outpatient (CLI) | payer OTHER | END | disposition home or self-care (01) | LOC: WOUNDCARE 00:08 | PROVIDERS: ATTEND Nurse Practitioner Family | DX: L89.154 Pressure ulcer of sacral region, stage 4 (principal); L89.214 Pressure ulcer of right hip, stage 4; L97.822 Non-pressure chronic ulcer of other part of left lower leg with fat layer exposed; L84 Corns and callosities; M86.60 Other chronic osteomyelitis, unspecified site; G82.20 Paraplegia, unspecified; I10 Essential (primary) hypertension; G62.9 Polyneuropathy, unspecified; Z99.3 Dependence on wheelchair; Z87.891 Personal history of nicotine dependence ==

== ENCOUNTER → 2023-12-26 | Outpatient (CLI) | payer OTHER | END | disposition home or self-care (01) | LOC: WOUNDCARE 00:58 | PROVIDERS: ATTEND Nurse Practitioner Family | DX: L89.154 Pressure ulcer of sacral region, stage 4 (principal); L89.314 Pressure ulcer of right buttock, stage 4; L89.214 Pressure ulcer of right hip, stage 4; L97.822 Non-pressure chronic ulcer of other part of left lower leg with fat layer exposed; L84 Corns and callosities; I10 Essential (primary) hypertension; G82.20 Paraplegia, unspecified; G62.9 Polyneuropathy, unspecified; M86.8X8 Other osteomyelitis, other site; Z87.891 Personal history of nicotine dependence; Z99.3 Dependence on wheelchair; Z79.899 Other long term (current) drug therapy ==

== ENCOUNTER → 2024-01-09 | Outpatient (CLI) | payer OTHER | END | disposition home or self-care (01) | LOC: WOUNDCARE 01:00 | PROVIDERS: ATTEND Nurse Practitioner Family | DX: L89.154 Pressure ulcer of sacral region, stage 4 (principal); L89.314 Pressure ulcer of right buttock, stage 4; L89.214 Pressure ulcer of right hip, stage 4; L97.822 Non-pressure chronic ulcer of other part of left lower leg with fat layer exposed; L84 Corns and callosities; I10 Essential (primary) hypertension; G82.20 Paraplegia, unspecified; G62.9 Polyneuropathy, unspecified; M86.8X8 Other osteomyelitis, other site; Z87.891 Personal history of nicotine dependence; Z99.3 Dependence on wheelchair; Z79.899 Other long term (current) drug therapy ==

== ENCOUNTER 2024-01-23 15:56 | Emergency (ER) | payer OTHER ==
[2024-01-23 16:24] LABS: BASO % 0.3 % (0.0-1.0); EOS # 0.1 10*3/uL (0.0-0.4); EOS % 0.9 % (1.0-4.0); HEMATOCRIT 25.4 % (42.0-52.0); LYMPH # 1.2 10*3/uL (1.3-4.4); LYMPH % 10.4 % (27.0-41.0); MEAN CORPUSCULAR HGB 21.8 pg (27.0-31.0); MEAN CORPUSCULAR HGB CONC 29.9 g/dl (33.0-37.0); MEAN PLATELET VOLUME 8.6 fl (9.6-12.3); MONO # 0.9 10*3/uL (0.1-1.0); MONO % 7.8 % (3.0-9.0); NEUT # 9.1 10*3/uL (2.3-7.9); NEUT % 79.9 % (47.0-73.0); PLATELET COUNT AUTOMATED 566 10*3/uL (130-400); RED BLOOD COUNT 3.48 10*6/uL (4.50-5.90); RED CELL DISTRI WIDTH 18.2 % (0-14.5); WHITE BLOOD COUNT 11.4 10*3/uL (4.8-10.8)
[2024-01-23] MEDS ORDERED: SODIUM CHLORIDE 0.9% 1,000 ML IV ONE (16:40)
[2024-01-23] MEDS ORDERED: Doxycycline Hyclate 100 MG in SODIUM CHLORIDE 0.9% 250 ML IV ONE (16:40)
[2024-01-23] MEDS ORDERED: Piperacillin Sodium/Tazobact 50 ML IV ONE (16:40)
[2024-01-23 16:43] LABS: BUN 19 mg/dl (9-23); CHLORIDE 103 mmol/L (98-107); POTASSIUM 4.4 mmol/L (3.4-5.1)
== END 2024-01-24 00:03 | disposition short-term general hospital (02) ==
LOC: ED 15:56
PROVIDERS: Internal Medicine
DX: T81.49XA Infection following a procedure, other surgical site, initial encounter (principal); R53.1 Weakness; I10 Essential (primary) hypertension; F12.10 Cannabis abuse, uncomplicated; Z88.2 Allergy status to sulfonamides; Z88.8 Allergy status to other drugs, medicaments and biological substances; Z90.89 Acquired absence of other organs; Z98.890 Other specified postprocedural states; Y84.8 Other medical procedures as the cause of abnormal reaction of the patient, or of later complication, without mention of misadventure at the time of the procedure; Y92.89 Other specified places as the place of occurrence of the external cause

== ENCOUNTER → 2024-02-11 | Outpatient (CLI) | payer OTHER | END | disposition home or self-care (01) | LOC: WOUNDCARE 01:24 | PROVIDERS: ATTEND Nurse Practitioner Primary Care | DX: L89.154 Pressure ulcer of sacral region, stage 4 (principal); L89.214 Pressure ulcer of right hip, stage 4; L97.822 Non-pressure chronic ulcer of other part of left lower leg with fat layer exposed; M86.60 Other chronic osteomyelitis, unspecified site; G82.20 Paraplegia, unspecified; I10 Essential (primary) hypertension; G62.9 Polyneuropathy, unspecified; L84 Corns and callosities; Z99.3 Dependence on wheelchair; Z87.891 Personal history of nicotine dependence ==

== ENCOUNTER → 2024-02-20 | Outpatient (CLI) | payer OTHER | END | disposition home or self-care (01) | LOC: WOUNDCARE 01:51 | PROVIDERS: ATTEND Nurse Practitioner Family | DX: L89.154 Pressure ulcer of sacral region, stage 4 (principal); L89.314 Pressure ulcer of right buttock, stage 4; L89.214 Pressure ulcer of right hip, stage 4; L97.822 Non-pressure chronic ulcer of other part of left lower leg with fat layer exposed; L84 Corns and callosities; I10 Essential (primary) hypertension; G82.20 Paraplegia, unspecified; G62.9 Polyneuropathy, unspecified; M86.8X8 Other osteomyelitis, other site; Z87.891 Personal history of nicotine dependence; Z99.3 Dependence on wheelchair; Z79.899 Other long term (current) drug therapy ==

== ENCOUNTER → 2024-03-04 | Outpatient (CLI) | payer OTHER | END | disposition home or self-care (01) | LOC: WOUNDCARE 02:13 | PROVIDERS: ATTEND Nurse Practitioner Family | DX: L89.154 Pressure ulcer of sacral region, stage 4 (principal); L89.314 Pressure ulcer of right buttock, stage 4; L89.214 Pressure ulcer of right hip, stage 4; L89.524 Pressure ulcer of left ankle, stage 4; L97.822 Non-pressure chronic ulcer of other part of left lower leg with fat layer exposed; L84 Corns and callosities; I10 Essential (primary) hypertension; G82.20 Paraplegia, unspecified; G62.9 Polyneuropathy, unspecified; M86.8X8 Other osteomyelitis, other site; Z87.891 Personal history of nicotine dependence; Z99.3 Dependence on wheelchair; Z79.899 Other long term (current) drug therapy ==